=== PATIENT | male | born 1990 | race Caucasian/White ===

== ENCOUNTER 2020-07-02 13:42 | Outpatient (REF) | payer OTHER, SELFPAY ==
[2020-07-02 16:34] LABS: MANUAL DIFF FLAG NO
[2020-07-02 16:38] LABS: Basophils Absolute Auto 0.1 X10*3/uL (0.0-0.2); Basophils Percent Auto 0.8 % (0-2); Eosinophils Absolute Auto 0.3 X10*3/uL (0.0-0.4); Eosinophils Percent Auto 2.7 % (0-4); Hematocrit 45.7 % (42-52); Hemoglobin 14.4 g/dl (14.0-18.0); Imm Gran Abs Auto 0.15 X10*3/uL (0.00-0.03); Imm Gran Pct Auto 1.5 % (0.0-0.4); Lymphocytes Absolute Auto 2.6 X10*3/uL (1.2-4.9); Lymphocytes Percent Auto 25.2 % (20-40); Mean Corpuscular HGB Conc 31.5 g/dl (31.0-36.0); Mean Corpuscular Volume 88.9 fL (80-98); Mean Platelet Volume 9.8 fL (9.4-12.4); Monocytes Absolute Auto 0.6 X10*3/uL (0.1-1.2); Neutrophils Absolute Auto 6.5 X10*3/uL (2.0-8.3); Neutrophils Percent Auto 63.8 % (45-73); Platelet Count 316 X10*3/uL (160-400); Red Blood Count 5.14 X10*6/uL (4.60-5.80); Red Cell Distribution Width 14.5 % (11.0-16.0); White Blood Count 10.2 X10*3/uL (4.8-10.8)
[2020-07-02 17:44] LABS: Alanine Aminotransferase 49 U/L (0-40); Albumin Level 4.1 g/dL (3.5-5.0); Alkaline Phosphatase 81 U/L (39-117); Anion Gap 17 (12-20); Aspartate Amino Transferase 33 U/L (5-37); Bilirubin Total 1.8 mg/dL (0.0-1.0); Blood Urea Nitrogen 12 mg/dL (9-16); Calcium 9.2 mg/dL (8.4-10.2); Carbon Dioxide 26 mmol/L (22-29); Chloride 105 mmol/L (96-108); Cholesterol 228 mg/dL; Estimated Glomerular Filt Rate > 60; Glucose Fasting 96 mg/dL (60-99); HDL Cholesterol 37 mg/dL; LDL Cholesterol Calculated 160 mg/dl; Sodium 144 mmol/L (135-145); Total Protein 7.5 g/dL (6.5-8.0); Triglycerides 159 mg/dL
== END 2020-07-02 13:43 | disposition home or self-care (01) ==
LOC: HO.HMGCLDS 13:42
PROVIDERS: PCP Internal Medicine; Visit Provider Internal Medicine
DX: Z00.00 Encounter for general adult medical examination without abnormal findings (principal); E66.9 Obesity, unspecified
CPT/HCPCS: 36415; 80053; 80061; 85025

== ENCOUNTER 2020-12-22 10:19 | Outpatient (REF) | payer OTHER, SELFPAY ==
--- NOTE | ~2020-12-22 | XR_ITS ---
EXAMINATION: XR CERVICAL SPINE CLINICAL INFORMATION: Cervicalgia COMPARISON: None TECHNIQUE: 3 views of the cervical spine were obtained. FINDINGS: No abnormal prevertebral soft tissue swelling is seen. No acute cervical spine fracture. There is minimal narrowing at the C5-C6 and C6-C7 levels. No destructive bony lesions identified. XR/XR cervical spine 3V IMPRESSION: No significant bony abnormality of the cervical spine.
== END 2020-12-22 10:20 | disposition home or self-care (01) ==
LOC: HO.HMGCX 10:19
PROVIDERS: PCP Internal Medicine; Visit Provider Physician Assistant Medical
DX: M54.2 Cervicalgia (principal)
CPT/HCPCS: 72040

== ENCOUNTER 2021-02-05 10:00 | Outpatient (RCR) | payer OTHER, SELFPAY ==
--- NOTE | 2021-01-16 17:16 | MHC.PT.EP ---
[facility] [place] [facility] [place] [facility] [place] Office [address] Stephie Britt [address] [phone] F: [phone] F: [phone] F: [phone] F: [phone] Physical Therapy Plan of Care Date of Evaluation: Date of Surgery: Diagnosis: Cervicalgia Assessment: Pt is a 30 y/o male referred to PT for eval and treat of cervicalgia resulting in decreased tolerance for turning his head and looking down, driving, reading, concentrating, sleeping, was well as reaching high shelves and dressing pullovers secondary to decreased cervical ROM and strength, decreased B UE ROM, frequent SCHWAB, increased cervical tissue tension, possible radicular Sx L UE, and pain; Pt is deemed an apporpriat candidate to receive skilled PT services to address his physical impairments in order to improve his functional ability. Frequency and Duration: The patient will be seen 2 x / wk x 5 wks. Short Term Goals: Initiate HEP. Pt will improve baseline Sx with activity from 8/10 to < 5 10. Long-Term Goals: I with HEP. Symmetrical full B shoulder flexion ROM. Full symmetrical pain free cervical ROM achieved. Pt will report < 1/4 disturbed night sleep; initial: 3/4 disturbed d/t cervical pain. Pt will report SCHWAB improved by at least 50%. Treatment Plan: Modalities to reduce pain, spasms and effusion. Manual therapy to restore motion and function. Therapeutic exercise to improve strength and flexibility. Neuromuscular re-education for posture and balance. Therapeutic activities to return to functional activities of daily living. Electronically signed by: Michael Bess PT. Please sign and return to therapist. Thank you for your referral.
--- NOTE | 2021-06-19 08:47 | MHC.PT.DC ---
[facility] [place] Office [place] Office [place] Office [address] Stephie Britt [address] [phone] F: [phone] F: [phone] F: [phone] F: [phone] Physical Therapy Discharge Report Diagnosis: Cervicalgia Date of Surgery: Date of Evaluation: 01/16/21 Date of Discharge: 02/05/21 Treatments to Date: 6 Cancellations to Date: No Shows to Date: Discharge Status: Patient Elected to Stop Recommend MD Follow-up Discharge Summary: patient getting MRI today. Limited tolerance for UBE so held. Performed ther-ex for to tolerance. Educated on importance of mobility. No adverse reactions noted. We will hold PT at this time. Electronically signed by: Anastacio Zurita PT Please sign and return to therapist. Thank you for your referral.
== END 2021-06-19 08:47 | disposition home or self-care (01) ==
LOC: HO.PTCHIC 10:00
PROVIDERS: PCP Internal Medicine; Visit Provider Physician Assistant Medical
DX: M54.2 Cervicalgia (principal)
CPT/HCPCS: 97014; 97110; 97112; 97140; 97161

== ENCOUNTER 2021-08-27 10:05 | Outpatient (REF) | payer OTHER, SELFPAY ==
--- NOTE | ~2021-08-27 | XR_ITS ---
EXAMINATION: XR ANKLE, LEFT CLINICAL INFORMATION: Pain COMPARISON: None TECHNIQUE: AP, lateral, and mortise views of the left ankle. FINDINGS: Bone alignment is normal. No fracture or dislocation is seen. The ankle mortise is normal. There is a calcaneal spur at the Achilles tendon insertion. XR/XR ankle LT min 3V IMPRESSION: Normal left ankle. Calcaneal spur.
== END 2021-08-27 10:06 | disposition home or self-care (01) ==
LOC: HO.HMGCX 10:05
PROVIDERS: PCP Internal Medicine; Visit Provider Internal Medicine
DX: M25.572 Pain in left ankle and joints of left foot (principal)
CPT/HCPCS: 73610

== ENCOUNTER 2021-08-28 10:13 | Outpatient (REF) | payer OTHER, SELFPAY ==
[2021-08-28 12:00] LABS: Anion Gap 15 (12-20); Blood Urea Nitrogen 9 mg/dL (9-16); Calcium 9.2 mg/dL (8.4-10.2); Carbon Dioxide 27 mmol/L (22-29); Chloride 103 mmol/L (96-108); Estimated Glomerular Filt Rate > 60; Glucose Random 115 mg/dL (60-115); Sodium 141 mmol/L (135-145); Uric Acid 12.2 mg/dL (3.4-7.0)
== END 2021-08-28 10:14 | disposition home or self-care (01) ==
LOC: HO.HMGCLDS 10:13
PROVIDERS: PCP Internal Medicine; Visit Provider Internal Medicine
DX: M25.572 Pain in left ankle and joints of left foot (principal); R60.0 Localized edema
CPT/HCPCS: 36415; 80048; 84550

== ENCOUNTER 2022-04-10 11:30 | Outpatient (REF) | payer OTHER, SELFPAY ==
[2022-04-10 13:55] LABS: MANUAL DIFF FLAG NO
[2022-04-10 14:29] LABS: Basophils Absolute Auto 0.1 X10*3/uL (0.0-0.2); Basophils Percent Auto 1.2 % (0-2); Eosinophils Absolute Auto 0.3 X10*3/uL (0.0-0.4); Eosinophils Percent Auto 3.8 % (0-4); Hematocrit 42.5 % (42.0-52.0); Hemoglobin 13.6 g/dl (14.0-18.0); Imm Gran Abs Auto 0.03 X10*3/uL (0.00-0.03); Imm Gran Pct Auto 0.5 % (0.0-0.4); Lymphocytes Absolute Auto 2.6 X10*3/uL (1.2-4.9); Lymphocytes Percent Auto 38.8 % (20-40); Mean Corpuscular Hemoglobin 28.6 pg (27.0-33.0); Mean Corpuscular Volume 89.3 fL (80.0-98.0); Mean Platelet Volume 10.2 fL (9.4-12.4); Monocytes Absolute Auto 0.4 X10*3/uL (0.1-1.2); Monocytes Percent Auto 5.9 % (2-11); Neutrophils Absolute Auto 3.3 x10*3/uL (2.0-8.3); Neutrophils Percent Auto 49.8 % (45-73); Platelet Count 366 X10*3/uL (160-400); Red Blood Count 4.76 X10*6/uL (4.60-5.80); Red Cell Distribution Width 14.4 % (11.0-16.0); White Blood Count 6.6 X10*3/uL (4.8-10.8)
[2022-04-10 14:34] LABS: Estimated Average Glucose 103 mg/dL; Hemoglobin A1c % 5.2 %
[2022-04-10 14:55] LABS: Alanine Aminotransferase 31 U/L (0-40); Albumin Level 4.1 g/dL (3.5-5.0); Alkaline Phosphatase 73 U/L (39-117); Anion Gap 14 (12-20); Aspartate Amino Transferase 34 U/L (5-37); Bilirubin Total 1.9 mg/dL (0.0-1.0); Blood Urea Nitrogen 7 mg/dL (9-16); Calcium 9.7 mg/dL (8.4-10.2); Carbon Dioxide 27 mmol/L (22-29); Chloride 105 mmol/L (96-108); Cholesterol 210 mg/dL; Estimated Glomerular Filt Rate > 60; Glucose Fasting 88 mg/dL (60-99); HDL Cholesterol 27 mg/dL; LDL Cholesterol Calculated 149 mg/dl; Potassium 4.4 mmol/L (3.3-5.1); Sodium 142 mmol/L (135-145); Total Protein 7.2 g/dL (6.5-8.0); Triglycerides 172 mg/dL; Uric Acid 7.3 mg/dL (3.4-7.0)
== END 2022-04-10 11:31 | disposition home or self-care (01) ==
LOC: HO.HMGCLDS 11:30
PROVIDERS: PCP Internal Medicine; Visit Provider Internal Medicine
DX: Z00.00 Encounter for general adult medical examination without abnormal findings (principal); D32.1 Benign neoplasm of spinal meninges; E78.5 Hyperlipidemia, unspecified; E79.0 Hyperuricemia without signs of inflammatory arthritis and tophaceous disease; R73.9 Hyperglycemia, unspecified
CPT/HCPCS: 36415; 80053; 80061; 83036; 84550; 85025

== ENCOUNTER 2022-10-06 10:37 | Outpatient (REF) | payer OTHER, SELFPAY ==
[2022-10-06 13:22] LABS: MANUAL DIFF FLAG NO
[2022-10-06 13:49] LABS: Basophils Percent Auto 0.5 % (0-2); Eosinophils Absolute Auto 0.4 X10*3/uL (0.0-0.4); Eosinophils Percent Auto 7.3 % (0-4); Hematocrit 41.6 % (42.0-52.0); Hemoglobin 13.9 g/dl (14.0-18.0); Imm Gran Abs Auto 0.01 X10*3/uL (0.00-0.03); Imm Gran Pct Auto 0.2 % (0.0-0.4); Lymphocytes Absolute Auto 2.6 X10*3/uL (1.2-4.9); Lymphocytes Percent Auto 43.4 % (20-40); Mean Corpuscular HGB Conc 33.4 g/dl (31.0-36.0); Mean Corpuscular Hemoglobin 28.4 pg (27.0-33.0); Mean Corpuscular Volume 85.1 fL (80.0-98.0); Mean Platelet Volume 10.1 fL (9.4-12.4); Monocytes Absolute Auto 0.3 X10*3/uL (0.1-1.2); Monocytes Percent Auto 5.6 % (2-11); Neutrophils Absolute Auto 2.5 x10*3/uL (2.0-8.3); Platelet Count 280 X10*3/uL (160-400); Red Blood Count 4.89 X10*6/uL (4.60-5.80); Red Cell Distribution Width 12.7 % (11.0-16.0); White Blood Count 5.9 X10*3/uL (4.8-10.8)
[2022-10-06 13:59] LABS: Estimated Average Glucose 88 mg/dL; Hemoglobin A1c % 4.7 % (<6.0)
[2022-10-06 14:29] LABS: Alanine Aminotransferase 16 U/L (0-40); Albumin Level 3.9 g/dL (3.5-5.0); Alkaline Phosphatase 62 U/L (39-117); Anion Gap 10 (12-20); Aspartate Amino Transferase 26 U/L (5-37); Bilirubin Total 1.5 mg/dL (0.0-1.0); Blood Urea Nitrogen 8 mg/dL (9-16); Calcium 9.9 mg/dL (8.4-10.2); Carbon Dioxide 28 mmol/L (22-29); Chloride 107 mmol/L (96-108); Cholesterol 202 mg/dL (<200); Estimated Glomerular Filt Rate > 60; Glucose Random 84 mg/dL (60-115); HDL Cholesterol 33 mg/dL (>40); LDL Cholesterol Calculated 140 mg/dL (<100); Potassium 3.8 mmol/L (3.3-5.1); Sodium 141 mmol/L (135-145); Total Protein 7.2 g/dL (6.5-8.0); Triglycerides 146 mg/dL (<150)
== END 2022-10-06 10:38 | disposition home or self-care (01) ==
LOC: HO.HMGCLDS 10:37
PROVIDERS: PCP Internal Medicine; Visit Provider Internal Medicine
DX: Z00.00 Encounter for general adult medical examination without abnormal findings (principal); R73.9 Hyperglycemia, unspecified
CPT/HCPCS: 36415; 80053; 80061; 83036; 85025

== ENCOUNTER 2023-01-05 10:05 | Outpatient (AMB) | payer OTHER, SELFPAY ==
--- NOTE | 2023-01-05 10:08 | MHC.PC.OV ---
Vital Signs 01/05/23 10:09 Height 5 ft 2 in Weight 230 lb BMI 42.1 BP 118/76 Blood Pressure Location Lt brachial Position Sitting Pulse 64 Pulse Source Pulse Oximeter Pulse Oximetry (%) 100 Oxygen Delivery Method Room Air Intake Visit Reasons: 6m follow up Intake Note: Pt is here today for 6 months follow up visit. Allergies No Known Allergies Allergy (Verified 01/05/23 10:24) Tobacco use date assessed: 01/05/23 Dental Screening Dental Screen Date: 01/05/23 Did you have a dental visit in the last 12 months?: Yes Did you have a dental problem in the last 6 months where you did not have access to dental care?: No Was dental information given to patient?: Patient has dentist HPI 6m follow up HPI Details PATIENT PRESENTS FOR THE FOLLOW-UP OF HYPERLIPIDEMIA AND MORBID OBESITY. He has been following low-cholesterol diet exercising regularly walking and losing weight. [facility] Medical History Annual physical exam Asthma Benign neoplasm of spinal meningioma Blurred vision, right eye Cervical radiculopathy Dysplastic nevi Hyperlipidemia Meningioma Neck pain Neoplasm of eye Obesity LU (obstructive sleep apnea) Family History Mother Seizures Father No problems noted. Paternal Grandfather Skin cancer Social History Housing: House Alcohol intake: current Alcohol intake frequency: holidays/special occasions only Patient Tobacco Use Status: Never used Tobacco e-Cigarette/Vaping Use: Never Used Current occupational status: employed Cognitive needs: No Hearing needs: No Vision needs: No Questionnaire PHQ-9 Over the last 2 weeks, how often have you been bothered by any of the following problems? 1. Little interest or pleasure in doing things: not at all 2. Feeling down, depressed, or hopeless: not at all 3. Trouble falling or staying asleep, or sleeping too much: not at all 4. Feeling tired or having little energy: not at all 5. Poor appetite or overeating: not at all 6. Feeling bad about yourself - or that you are a failure or have let yourself or your family down: not at all 7. Trouble concentrating on things, such as reading the newspaper or watching television: not at all 8. Moving or speaking so slowly that other people could have noticed. Or the opposite - being so fidgety or restless that you have been moving around a lot more than usual: not at all 9. Thoughts that you would be better off or of hurting yourself in some way: not at all Total score: 0 Depression Screening Interpretation: Negative Depression Screening Done: Yes Source: Developed by Drs. José Miguel Parekh, Bill Mckee and colleagues, with an educational paul from [employer]. Thrive Questionnaire Date Thrive assessed: 04/14/22 ALMITA-7 AMB Questionnaire ALMITA-7 Date ALMITA - 7 assessed: 01/05/23 Feeling nervous, anxious, or on edge: 0 = Not at all Not being able to stop or control worryin = Not at all Worrying too much about different things: 0 = Not at all Trouble relaxin = Not at all Being so restless that it is hard to sit still: 0 = Not at all Becoming easily annoyed or irritable: 0 = Not at all Feeling afraid as if something awful might happen: 0 = Not at all Total ALMITA-7 score (0-4 normal; 5-9 mild; 10-14 moderate; 15-21 severe): 0 Source: Developed by Drs. José Miguel Parekh, Bill Mckee and colleagues, with an educational paul from [employer]. Review of Systems Const All systems reviewed & are unremarkable except as noted in HPI and below ENT Reports no additional complaints Card Reports no additional complaints Resp Reports no additional complaints GI Reports no additional complaints Physical exam (Primary Care) Vital Signs: Last Vital Signs Pulse 64 01/05/23 10:09 BP 118/76 01/05/23 10:09 Pulse Ox 100 01/05/23 10:09 Oxygen Delivery Method Room Air 01/05/23 10:09 BMI result Body Mass Index 42.1 Tobacco/Smoking Status: Tobacco use Status Tobacco use date assessed 01/05/23 01/05/23 10:26 Patient Tobacco Use Status Never used Tobacco 01/05/23 10:26 e-Cigarette/Vaping Use Never Used 01/05/23 10:09 PHQ-9: PHQ-9 Score PHQ-9: Total score 0 01/05/23 10:26 Depression Screening Interpretation: Negative Thrive Assessment: Date of Thrive Assessment Date Thrive assessed 04/14/22 01/05/23 10:09 Assessment and Plan Assessment & Plan (1) Anemia: Code(s): D64.9 - Anemia, unspecified Plan: check CBC, Iron studies and vit B 12 (2) Hyperglycemia: Code(s): R73.9 - Hyperglycemia, unspecified Plan: cont ADA diet (3) Obesity: Code(s): E66.9 - Obesity, unspecified Plan: cont weight loss (4) Hyperlipidemia: Code(s): E78.5 - Hyperlipidemia, unspecified Plan: low cholesterol diet, PE in June with labs before Orders: Orders IRON PROFILE Today D64.9 - Anemia, unspecified, R73.9 - Hyperglycemia, unspecified Vitamin B12 and Folate Today D64.9 - Anemia, unspecified Complete Blood Count Auto Diff 6 Months D64.9 - Anemia, unspecified, E66.9 - Obesity, unspecified, E78.5 - Hyperlipidemia, unspecified, E79.0 - Hyperuricemia without signs of inflammatory arthritis and tophaceous disease, Z00.00 - Encounter for general adult medical examination without abnormal findings Uric Acid 6 Months D64.9 - Anemia, unspecified, E66.9 - Obesity, unspecified, E78.5 - Hyperlipidemia, unspecified, E79.0 - Hyperuricemia without signs of inflammatory arthritis and tophaceous disease, Z00.00 - Encounter for general adult medical examination without abnormal findings Complete Blood Count Auto Diff Today D64.9 - Anemia, unspecified, R73.9 - Hyperglycemia, unspecified Basic Metabolic Panel Today D64.9 - Anemia, unspecified, R73.9 - Hyperglycemia, unspecified Comprehensive [place]. Panel Fast 6 Months D64.9 - Anemia, unspecified, E66.9 - Obesity, unspecified, E78.5 - Hyperlipidemia, unspecified, E79.0 - Hyperuricemia without signs of inflammatory arthritis and tophaceous disease, Z00.00 - Encounter for general adult medical examination without abnormal findings Lipid Panel 6 Months D64.9 - Anemia, unspecified, E66.9 - Obesity, unspecified, E78.5 - Hyperlipidemia, unspecified, E79.0 - Hyperuricemia without signs of inflammatory arthritis and tophaceous disease, Z00.00 - Encounter for general adult medical examination without abnormal findings IRON PROFILE 6 Months D64.9 - Anemia, unspecified, E66.9 - Obesity, unspecified, E78.5 - Hyperlipidemia, unspecified, E79.0 - Hyperuricemia without signs of inflammatory arthritis and tophaceous disease, Z00.00 - Encounter for general adult medical examination without abnormal findings Coding Level of Care Code Est Pt Level 4 (67335) Diagnoses Anemia D64.9 Hyperglycemia R73.9 Obesity E66.9 Hyperlipidemia E78.5
[2023-01-05 10:09] VITALS: BP 118/76; PULSE 64; O2SAT 100; BMI 42.1
== END 2023-01-05 10:58 | disposition home or self-care (01) ==
PROVIDERS: PCP Internal Medicine; Visit Provider Internal Medicine
DX: D64.9 Anemia, unspecified (principal); E66.9 Obesity, unspecified; Z68.41 Body mass index [BMI] 40.0-44.9, adult; R73.9 Hyperglycemia, unspecified; E78.5 Hyperlipidemia, unspecified
CPT/HCPCS: 99214

== ENCOUNTER 2023-07-07 10:21 | Outpatient (AMB) | payer OTHER, SELFPAY ==
[2023-07-07 10:23] VITALS: BP 108/70; PULSE 72; O2SAT 97; BMI 48.3
--- NOTE | 2023-07-07 10:23 | A.OFFPC_ITS ---
Vital Signs 07/07/23 10:23 Height 5 ft 2 in Weight 264 lb BMI 48.3 BP 108/70 Blood Pressure Location Lt brachial Position Sitting Pulse 72 Pulse Source Pulse Oximeter Pulse Oximetry (%) 97 Oxygen Delivery Method Room Air Intake Visit Reasons: PE Intake Note: Pt is here today for PE. Allergies No Known Allergies Allergy (Verified 07/07/23 10:23) Medication List - Last Reconciled 07/07/23 by Kia Mota MD betamethasone valerate 0.1% topical compr.stocking,knee,long,x-lrg As directed melatonin 6 mg PO BEDTIME PRN multivitamin (Daily Multi-Vitamin tablet) 1 tab PO DAILY Tobacco use date assessed: 07/07/23 Dental Screening Dental Screen Date: 07/07/23 Did you have a dental visit in the last 12 months?: Yes Did you have a dental problem in the last 6 months where you did not have access to dental care?: No Was dental information given to patient?: Patient has dentist HPI PE HPI Details Pt presents for PE. Patient has been trying to lose weight but has been eating lot of unhealthy snacks brought by his father and not exercising regularly. [facility] Medical History (Updated 07/07/23 @ 11:21 by Kia Mota MD) Hyperlipidemia Meningioma Benign neoplasm of spinal meningioma Dysplastic nevi LU (obstructive sleep apnea) Cervical radiculopathy Blurred vision, right eye Neck pain Obesity Annual physical exam Asthma Neoplasm of eye Family History Mother Seizures Father No problems noted. Paternal Grandfather Skin cancer Social History Housing: House Alcohol intake: current Alcohol intake frequency: holidays/special occasions only Patient Tobacco Use Status: Never used Tobacco e-Cigarette/Vaping Use: Never Used service: No Current occupational status: employed Cognitive needs: No Hearing needs: No Vision needs: No Questionnaire PHQ-9 Over the last 2 weeks, how often have you been bothered by any of the following problems? 1. Little interest or pleasure in doing things: several days 2. Feeling down, depressed, or hopeless: several days 3. Trouble falling or staying asleep, or sleeping too much: more than half the days 4. Feeling tired or having little energy: not at all 5. Poor appetite or overeating: nearly every day 6. Feeling bad about yourself - or that you are a failure or have let yourself or your family down: more than half the days 7. Trouble concentrating on things, such as reading the newspaper or watching television: several days 8. Moving or speaking so slowly that other people could have noticed. Or the opposite - being so fidgety or restless that you have been moving around a lot more than usual: not at all 9. Thoughts that you would be better off or of hurting yourself in some way: several days Total score: 11 Depression Screening Interpretation: Positive Depression Screening Done: Yes Source: Developed by Drs. José Miguel Parekh, Betty Horan, Bill Parks and colleagues, with an educational paul from [employer]. Thrive Questionnaire Date Thrive assessed: 07/07/23 I am a: Patient What is your living situation today?: I have a steady place to live Within the past 12 months, did the food you bought not last and you didn't have the money to get more?: Never true Within the past 12 months, did you worry whether your food would run out before you got money to buy more?: Never true Do you have trouble paying for medicines?: No Do you have trouble getting transportation to medical appointments?: No Do you have trouble paying your heating and electricity bill?: No Do you have trouble taking care of your child, family member or friend?: No Do you have trouble with day-to-day activities such as bathing, preparing meals, shopping, managing finances, etc.?: No Are you currently unemployed and looking for a job?: No Are you interested in more education?: No Please select the resources that you would like help with: None THRIVE Score: 0 AUDIT C Alcohol Use Questionnaire (AUDIT-C) 1. How often do you have a drink containing alcohol?: Monthly or less 2. How many drinks containing alcohol do you have on a typical day when you are drinking?: 1 or 2 3. How often do you have six or more drinks on one occasion?: Never Total Score: 1 ALMITA-7 AMB Questionnaire ALMITA-7 Date ALMITA - 7 assessed: 07/07/23 Feeling nervous, anxious, or on edge: 1 = Several days Not being able to stop or control worryin = Several days Worrying too much about different things: 2 = More than half the days Trouble relaxin = More than half the days Being so restless that it is hard to sit still: 1 = Several days Becoming easily annoyed or irritable: 1 = Several days Feeling afraid as if something awful might happen: 1 = Several days Total ALMITA-7 score (0-4 normal; 5-9 mild; 10-14 moderate; 15-21 severe): 9 Source: Developed by Drs. José Miguel Parekh, Betty Horan, Bill Parks and colleagues, with an educational paul from [employer]. Review of Systems Const All systems reviewed & are unremarkable except as noted in HPI and below Reports no additional complaints Eyes Reports no additional complaints ENT Reports no additional complaints Card Reports no additional complaints Resp Reports no additional complaints GI Reports no additional complaints Reports no additional complaints Physical exam (Primary Care) Vital Signs: Last Vital Signs Pulse 72 07/07/23 10:23 BP 108/70 07/07/23 10:23 Pulse Ox 97 07/07/23 10:23 Oxygen Delivery Method Room Air 07/07/23 10:23 BMI result Body Mass Index 48.3 Tobacco/Smoking Status: Tobacco use Status Tobacco use date assessed 07/07/23 07/07/23 10:31 Patient Tobacco Use Status Never used Tobacco 07/07/23 10:31 e-Cigarette/Vaping Use Never Used 07/07/23 10:31 Depression Screening Interpretation: Positive Thrive Assessment: Date of Thrive Assessment Date Thrive assessed 04/14/22 07/07/23 10:31 Const General: no acute distress HENMT Head: Yes normal to inspection Ears: hearing grossly normal bilaterally General nose exam: Normal external nose present Face and sinus: Yes normal facial exam Mouth: Normal oral and palatal mucosa present Eyes General: appearance normal, both eyes and all related structures Neck Neck: Yes no lymphadenopathy and Yes supple Resp Effort & Inspection: normal respiratory effort Auscultation: clear to auscultation bilaterally Cardio Rhythm: regular rhythm Heart sounds: S1 normal heart sound present and S2 normal heart sound present GI Inspection: Yes normal to inspection Palpation (GI): Soft to palpation Percussion: Yes normal to percussion Auscultation: normal bowel sounds Assessment and Plan Assessment & Plan (1) Annual physical exam: Code(s): Z00.00 - Encounter for general adult medical examination without abnormal findings Plan: Well-balanced diet regular physical activity discussed with the patient he will return for fasting blood work (2) Morbid obesity due to excess calories: Code(s): E66.01 - Morbid (severe) obesity due to excess calories Plan: Increase in physical activity decrease in caloric intake and weight loss discussed with the patient. He was advised to see a counselor for chronic anxiety but patient declined (3) Anemia: Code(s): D64.9 - Anemia, unspecified Plan: check CBC (4) Meningioma: Comment: s/p [employer] shunt placement at [facility] 02/05, neurosurgeon at [facility] PARTIAL RESECTION 07/07, follows up annually for brain MRI Code(s): D32.9 - Benign neoplasm of meninges, unspecified Plan: Follow-up with neurosurgeon at [facility] Orders: Orders Hemoglobin A1c Today D64.9 - Anemia, unspecified, E66.01 - Morbid (severe) obesity due to excess calories, Z00.00 - Encounter for general adult medical examination without abnormal findings Comprehensive [place]. Panel Fast Today D64.9 - Anemia, unspecified, E66.01 - Morbid (severe) obesity due to excess calories, Z00.00 - Encounter for general adult medical examination without abnormal findings Complete Blood Count Auto Diff Today D64.9 - Anemia, unspecified, E66.01 - Morbid (severe) obesity due to excess calories, Z00.00 - Encounter for general adult medical examination without abnormal findings Lipid Panel Today D64.9 - Anemia, unspecified, E66.01 - Morbid (severe) obesity due to excess calories, Z00.00 - Encounter for general adult medical examination without abnormal findings Coding Level of Care Code Est Pt Prev Care 18-39y([id number]) Diagnoses Annual physical exam Z00.00 Morbid obesity due to excess calories E66.01 Anemia D64.9 Meningioma D32.9
== END 2023-07-07 11:13 | disposition home or self-care (01) ==
PROVIDERS: Visit Provider Internal Medicine
DX: Z00.00 Encounter for general adult medical examination without abnormal findings (principal); E66.01 Morbid (severe) obesity due to excess calories; D32.9 Benign neoplasm of meninges, unspecified; Z68.42 Body mass index [BMI] 45.0-49.9, adult; D64.9 Anemia, unspecified
CPT/HCPCS: 99395

== ENCOUNTER 2023-07-16 10:04 | Outpatient (REF) | payer OTHER, SELFPAY ==
[2023-07-16 13:34] LABS: MANUAL DIFF FLAG NO
[2023-07-16 13:41] LABS: Basophils Absolute Auto 0.1 X10*3/uL (0.0-0.2); Basophils Percent Auto 0.9 % (0-2); Eosinophils Absolute Auto 0.3 X10*3/uL (0.0-0.4); Eosinophils Percent Auto 3.8 % (0-4); Hematocrit 40.7 % (42.0-52.0); Hemoglobin 13.7 g/dl (14.0-18.0); Imm Gran Abs Auto 0.05 X10*3/uL (0.00-0.03); Imm Gran Pct Auto 0.7 % (0.0-0.4); Lymphocytes Percent Auto 43.7 % (20-40); Mean Corpuscular HGB Conc 33.7 g/dl (31.0-36.0); Mean Corpuscular Hemoglobin 30.9 pg (27.0-33.0); Mean Corpuscular Volume 91.7 fL (80.0-98.0); Mean Platelet Volume 10.2 fL (9.4-12.4); Monocytes Absolute Auto 0.4 X10*3/uL (0.1-1.2); Monocytes Percent Auto 5.3 % (2-11); Neutrophils Absolute Auto 3.1 x10*3/uL (2.0-8.3); Neutrophils Percent Auto 45.6 % (45-73); Platelet Count 275 X10*3/uL (160-400); Red Blood Count 4.44 X10*6/uL (4.60-5.80); Red Cell Distribution Width 12.2 % (11.0-16.0); White Blood Count 6.8 X10*3/uL (4.8-10.8)
[2023-07-16 14:15] LABS: Alanine Aminotransferase 20 U/L (0-40); Alkaline Phosphatase 62 U/L (39-117); Anion Gap 11 (12-20); Aspartate Amino Transferase 34 U/L (5-37); Bilirubin Total 1.3 mg/dL (0.0-1.0); Blood Urea Nitrogen 11 mg/dL (9-16); Calcium 9.9 mg/dL (8.4-10.2); Carbon Dioxide 29 mmol/L (22-29); Chloride 105 mmol/L (96-108); Cholesterol 220 mg/dL (<200); Estimated Glomerular Filt Rate > 60; Glucose Fasting 82 mg/dL (60-99); HDL Cholesterol 33 mg/dL (>40); LDL Cholesterol Calculated 136 mg/dL (<100); Potassium 4.1 mmol/L (3.3-5.1); Sodium 141 mmol/L (135-145); Total Protein 7.6 g/dL (6.5-8.0); Triglycerides 257 mg/dL (<150)
[2023-07-16 14:17] LABS: Estimated Average Glucose 97 mg/dL
== END 2023-07-16 10:05 | disposition home or self-care (01) ==
LOC: HO.HMGCLDS 10:04
PROVIDERS: PCP Internal Medicine; Visit Provider Internal Medicine
DX: Z00.00 Encounter for general adult medical examination without abnormal findings (principal); D64.9 Anemia, unspecified; E66.01 Morbid (severe) obesity due to excess calories
CPT/HCPCS: 36415; 80053; 80061; 83036; 85025

== ENCOUNTER 2024-03-21 08:00 | Outpatient (AMB) | payer OTHER, SELFPAY ==
--- OUTSIDE RECORDS SUMMARY | 2024-03-21 08:02 | XMS_ITS | Data Portability ---
Author Organization VASILIY Azar [facility] [address] Address [address] [place] [address] Care Team Providers Care Dry Sand Molder Name Role Phone [facility] Primary Care Provider [phone] Assessment No assessment recorded. Plan of Treatment Reminders Order Date Submit Date Provider Last Modified By Organization Details Last Modified Time Details Appointments None recorded. Lab None recorded. Referral None recorded. Procedures None recorded. Surgeries None recorded. Imaging None recorded. Medication Orders Polytrim 10,000 unit-1 mg/mL eye drops 2022 023 [id number], [address], [place], [phone], 19:48:55 Patient TargetsNo targets recorded. Patient Instructions Encounter Date Encounter Id Patient Instructions Last Modified By Organization Details Last Modified Time 08/28/2022 [id number] Based on your presentation and exam, you are going diagnosed with Conjunctivitis. I am going to cover you for a bacterial infection in the eye with antibiotic eye drops. Sometimes these symptoms can be caused by a virus or allergies. Viral infections with spontaneously resolve after 7-10 days and do not require treatment. If it is an allergy cause sometime oral allergy medications will help with these symptoms or a allergy eye drop that can be purchased OTC. The following are my recommendations to help with your symptoms and this diagnosis: 1. Do not rub your eyes this can cause it to spread or damage the cornea of your eye. 2. Wash surfaces such as cell phones, remotes, door knob frequently, because this is how it is transmitted to others. 3. Do not wear contacts for at least 1 week if you have contacts. 4. No makeup 5. You can take Ibuprofen or Tylenol for discomfort if you are not allergic to them. 6. If you get lubricating eye drops and put them in the refrigerator - this can help with itching and discomfort. You should be seen again if you develop any of the following symptoms 1. Eye pain or pressure behind the eye. 2. Redness or significant swelling of the eyelid or around the eye 3. Headache 4. Fever > 100.5 5. No improvement in current symptoms in the next 1 week. Thank you for using [facility] today, please feel free to contact us with any questions or concerns. [email or web address] Not available 08/28/2022 19:49:01 Reason for Referral None Reported. Problems Name Problem SNOMED Code Status Onset Date Resolution Date Notes Provider Name and Address Organization Details Recorded Time Malignant neoplasm of eye 157809373 Completed 202208/28/20221992 ULYSSES brantley PA - [facility] 3 19:20:09 Notes:chiari malformation fi xed in 2021 hx of brain tumor 2021 Problem Notes None recorded. Procedures Surgical History Date Name Laterality Status Provider Name and Address Organization Details Recorded Time 2 procedure on brain ventricular shunt completed ULYSSES JUSTIN PA - [facility] 08/28/2022 19:23:13 2 excision of tumor of brain meninges completed ULYSSES JUSTIN PA - [facility] 08/28/2022 19:23:43 3 procedure on eye completed ULYSSES JUSTIN PA - [facility] 08/28/2022 19:24:18 Imaging Results None recorded. Procedure Notes None recorded. Medical Equipment None Reported. Allergies No known drug allergies Medications Name Sig Start Date Stop Date Status Note LastModified by Organization Details LastModified Time Polytrim 10,000 unit-1 mg/mL eye drops INSTILL 1 DROP INTO AFFECTED EYE(S) BY OPHTHALMIC ROUTE EVERY 4 HOURS 2022 active Not Available Not Available Not Avai lable Fish Oil active Not Available Not Avai lable Not Available Zyrtec active Not Available Not Availa ble Not Available multivitamin active Not Available Not Available Not Available Vitals Date Recorded Body height Body mass index (BMI) Body weight Pain severity - 0-10 verbal numeric rating [Score] - Reported Oxygen saturation Oxygen saturation in Arterial blood by Pulse oximetry Heart rate Respiratory rate Body temperature Systolic blood pressure Diastolic blood pressure Provider Name and Address Organization Details Last Updated DateTime 157.48 cm 43 kg/m2 566447. 21 g 2 99 % 99 % 77 /min 18 /min 98.1 [degF] 102 mm[Hg] 67 mm[Hg] ULYSSES JUSTIN PA - [facility] 19:26:41 Social History Question Answer Notes LastModified by Organizat ion Details LastModified Time Tobacco Smoking Status Never Smoker ULYSSES JUSTIN null, [place] - [facility] 08/28/2022 19:21:54 Are You Currently Employed? Yes Information not available 08/28/2022 Do You Use Any Illicit Or Recreational Drugs? No Information not available 08/28/2022 Have You Recently Traveled Abroad? No Information not available 08/28/2022 Do You Or Have You Ever Used Any Other Forms Of Tobacco Or Nicotine? No Information not available 08/28/2022 Sex: Unknown Functional Status None recorded. Mental Status None recorded. Family History Relationship Description Onset Age of this Age Resolved Age Notes LastModified by Organization Details LastModified Time Father No current problems or disability Not available 08/28 19:21:33 Mother No current problems or disability Not available 08/28 19:21:33 Medical History No medical history recorded. Immunizations Vaccine Type Date Status Note Provider Nam e and Address Organization Details Recorded Time Influenza, MDCK, quadrivalent, PF 01/19/2021 completed ULYSSES NHAN null, PA - [facility] 08/28/2022 19:29:28 COVID-19, mRNA, LNP-S, PF, 30 mcg/0.3 mL dose 06/01/2020 completed ULYSSES NHAN null, PA - [facility] 08/28/2022 19:29:28 COVID-19, mRNA, LNP-S, PF, 30 mcg/0.3 mL dose 06/22/2020 completed ULYSSES NHAN null, [place] - [facility] 08/28/2022 19:29:28 COVID-19, mRNA, LNP-S, PF, 30 mcg/0.3 mL dose, marilin-sucrose 03/08/2021 completed ULYSSES NHAN null, [place] - [facility] 08/28/2022 19:29:28 COVID-19, mRNA, LNP-S, bivalent, PF, 30 mcg/0.3 mL dose 01/12/2022 completed ULYSSES NHAN null, PA - [facility] 08/28/2022 19:29:28 Influenza, split virus, quadrivalent, PF 01/12/2022 completed ULYSSES NHAN null, PA - [facility] 08/28/2022 19:29:28 Past Encounters Encounter ID Performer Location Encounter Start Date Encounter Closed Date Diagnosis/Indication Diagnosis SNOMED-CT Code Diagnosis ICD10 Code Diagnosis Note [id number] [address] [address] [place] [address] 01/19/2021 14:05:43 01/19/2021 14:14:58 [id number] [address] [address] [place] [address] 02/03/2020 13:37:58 02/03/2020 17:18:55 [id number] [address] [place] [address] 01/19/2021 12:51:52 01/19/2021 14:10:19 [id number] VASILIY GRACE [address] [place] [address] 08/28/2022 19:12:10 08/28/2022 19:59:08 Acute conjunctivitis of right eye 6451377566 77231 H10.31 Health Concerns Section Related Observation LastModified by Organization Detai ls LastModified Time None Recorded Concern Status LastModified by Organization Details LastModified Time None Recorded Advance Directives Directive None Recorded Payers Encounter Date Sequence Insurance Name Policy Number Policy Carlson Covered Member ID Carlson Member ID Guarantor Name 01/19/2021 1 [facility] - DIRECT CONNECTORCARE TYPE I (HMO) [id number] Teddy Peralta [id number] Teddy Peralta 01/19/2021 1 [facility] - DIRECT CONNECTORCARE TYPE I (HMO) [id number] Teddy Ward Yarielsusieestephaniasuzan [id number] Teddy Fabian 08/28/2022 1 [facility] - DIRECT [facility] [id number] Teddy Peralta [id number] Teddy Fabian Notes Date Note Type Note Provider Name and Address Organization Details Recorded Time 08/28/2022 text/html PhysicalReported bypatient.Notes:31 y.o male pt presents with right eye erythema with mild discharge x 2 days. Pt denies pain, fb sensation, light sensitivity, or h/o wearing contacts. Used Zyrtec with some benefit. VASILIY GRACE [address] [place], [address], [place] - [facility] 09/03/2022 13:54:07
--- OUTSIDE RECORDS SUMMARY | 2024-03-21 08:02 | XMS_ITS | Continuity of Care Document ---
Author Organization [place] - [facility], [facility] Address [address] [place] [address] Care Team Providers Care Glycerin Supervisor Name Role Phone MARTY ARCHIBALD Primary Care Provider Assessment Encounter Date Assessment Date Assessment LastModified by Organization Details LastModified Time 02/29/2024 02/29/2024 The right ear is looking much better today, with no signs of residual middle ear effusion. No signs of retraction or significant residual eustachian tube dysfunction. Audiometric testing was carried out today to reevaluate the right ear. The previously noted conductive component of the hearing loss has resolved leaving him with a mildly asymmetric underlying sensorineural hearing loss. The asymmetry is likely due to his history of intracranial surgery and subsequent radiation in this area. There is enough hearing loss to have a negative effect on day-to-day hearing and we discussed his candidacy for amplification in the right ear. He feels like the hearing loss is not bothering him enough to want to consider amplification, so he would like to leave alone for now. Patient may use Valsalva maneuver as needed for recurrence of blockage sensation. He may follow-up as needed. [email or web address] Not available 02/29/2024 12:38:08 Plan of Treatment Reminders Order Date Submit Date Provider Last Modified By Organization Details Last Modified Time Details Appointments None record ed. Lab None record ed. Referral None record ed. Procedures None record ed. Surgeries None record ed. Imaging None record ed. Medication Orders None record ed. Patient TargetsNo targets recorded. Patient InstructionsNo instructions recorded. Reason for Referral None Reported. Results Created Date Observation Date Name Description Value Unit Range Abnormal Flag Note LastModifiedBy Organization Detail LastModifiedTime 03/01/19 25 audio gram No observ ation record ed. BARCODE Not Available 2024 09:36:50 Result Notes None recorded. Problems Name Problem SNOMED Code Status Onset Date Resolution Date Notes Provider Name and Address Organization Details Recorded Time Tinnitus of right ear 4204208814793 Active 2023 GIGI HICKMAN [address] [facility] [facility] 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 7543599861896 5 Active 2023 GIGI HICKMAN [address] [facility],[address], [place], [address], [place] - [facility] 4 14:52:35 Dysfunction of eustachian tube 71559373 Active 2023 ZANA VIGIL MD [address] [facility], [place], [address], [place] - [facility] 4 16:12:30 Sensorineur al hearing loss 14039732 Active 2024 ZANA VIGIL MD [address] [facility], [place], [address], [place] - [facility] 5 12:35:52 Problem Notes None recorded. Procedures Surgical History Date Name Laterality Status Provider Name and Address Organization Details Recorded Time 025 Air & Speech Audio with Tymps (51404, 72554 & 02417) completed GIGI HICKMAN 100 [facility],[address], [address], [facility] - [facility] 02/29/2024 11:59:44 024 Comp Audio with Tymps (52040 & 04464) completed GIGI HICKMAN 100 [facility],[address], [address], [facility] - [facility] 12/24/2023 14:42:33 024 Fiberoptic Nasopharyngoscopy completed ZANA VIGIL MD [address], [address], [facility] 12/24/2023 16:01:54 Imaging Results None recorded. Procedure Notes None recorded. Medical Equipment None Reported. Allergies Allergen ID Allergen Name Allergen Category Reaction Reaction Severity Criticality Documentation Date Start Date Code Code System Note Provider Name and Address Organization Details Recorded Time 128213 strawberr y allergeni c extract food Not available Not available Not available 12/24/2023 92641 4 RxNorm Olga brantley [place] - [facility] 15:39:25 No known drug allergies Medications Name Sig Start Date Stop Date Status Note LastModified by Organization Details LastModified Time ammonium lactate 12 % lotion APPLY TOPICALLY TO THE AFFECTED AREA OF THE LEGS TWICE DAILY 12/23 completed Not Available Not Available Not Available econazole nitrate 1 % topical cream APPLY TWICE DAILY TO FEET UNTIL CLEARED THEN ONCE WEEKLY FOR MAINTENAN CE 12/23 completed Not Available Not Available Not Available betamethaso ne dipropionat e 0.05 % topical cream APPLY TO LEGS TWICE DAILY FOR 2 WEEKS THEN BREAK FOR 1 WEEK THEN NEEDED 12/23 completed Not Available Not Available Not Available mupirocin 2 % topical ointment APPLY TOPICALLY TO THE BIOPSY SITE TWICE DAILY X14 DAYS 12/23 completed Not Available Not Available Not Available Vitals None Recorded Social History None recorded. Functional Status None recorded. Mental Status None recorded. Family History Nothing Reported. Medical History Condition Response Allergies/Hayfever Y Heart Problems N Anxiety Y Tonsil Infections N Emphysema N Migraines Y Thyroid Problems N Glaucoma N Depression Y COPD N Developmental Delay N Nasal or Sinus Problems N Anemia N Immune System Disorder N Anesthesia Complications N Heart Attack ([place]) N Other Skin Condition N Diabetes N Rhinitis N Bleeding Disorder N Food Allergy Y Arthritis N Hearing Loss Y Hyperlipidemia Y Cancer Y Stroke N Dementia N Nasal polyps N Asthma N Sleep Disorder Y GERD/Reflux N High Cholesterol Y Liver Disease N Headaches Y Fibromyalgia N Hypertension N Speech Delay N Kidney Disease N Past Encounters Encounter ID Performer Location Encounter Start Date Encounter Closed Date Diagnosis/Indication Diagnosis SNOMED-CT Code Diagnosis ICD10 Code Diagnosis Note [id number] ZANA VIGIL MD [facility] [address] [address] 02/29/2024 11:25:11 02/29/2024 12:34:41 History of radiation therapy 962067897 Z92.3 Dysfunctio n of eustachian tube 29609682 H68.001 Right Ear:Mild to moderate MHL.Type A tympanogra m- positive pressure noted. Sensorineu ral hearing loss 95675824 H90.3 Health Concerns Section Related Observation LastModified by Organization Detai ls LastModified Time None Recorded Concern Status LastModified by Organization Details LastModified Time None Recorded Payers Encounter Date Sequence Insurance Name Policy Number Policy Carlson Covered Member ID Carlson Member ID Guarantor Name 02/29/2024 1 [facility] [employer] [facility] - DIRECT CONNECTORCARE TYPE I (HMO) [id number] Teddy Peralta [id number] Teddy Peralta Notes Date Note Type Note Provider Name and Address Organization Details Recorded Time 02/29/2024 text/html 33-year-old male who underwent 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 He underwent partial resection of the tumor via suboccipital craniotomy by Dr. Mares in [place] in 2021. The there is a significant amount of residual tumor was irradiated by [facility] radiation oncology is being monitored by radiation oncology service. Patient last seen back in December at which point patient noted to have a chronic mucoid middle ear effusion on the right. I recommended Valsalva maneuver and/or use of Eustachi device to consistently insufflate the middle ear space. He comes back today for reevaluation. Patient reports he has been using Valsalva maneuver on a consistent basis and has noticed a significant improvement in the hearing in the right ear, though it does not sound quite as good as the hearing in the left ear. He still notes constant tinnitus in the right ear ZANA VIGIL MD [address] [place] [address], [place], [address], [facility] - [facility] 02/29/2024 12:38:48
[2024-03-21 08:03] VITALS: BP 110/68; PULSE 77; TEMP 36.8; O2SAT 98; BMI 48.3
--- NOTE | 2024-03-21 08:03 | AM.OFFWIN_ITS ---
Intake Vital Signs 03/21/24 08:03 Height 5 ft 2 in Weight 264 lb BMI 48.3 BP 110/68 Blood Pressure Location Lt brachial Position Sitting Pulse 77 Pulse Source Pulse Oximeter Temp 98.3 F Temp Source Oral Pulse Oximetry (%) 98 Intake Visit Reasons: EP LT leg pain Intake Note: pt is here for left leg pain Patient Tobacco Use Status: Never used Tobacco Allergies No Known Allergies Allergy (Verified 03/21/24 08:04) Do you need a note to return to daycare/school/sports/work: No HPI HPI Comments History of Present Illness Details History of Present Illness - The patient is a 33-year-old male pres enting with left leg pain that originated suddenly 3 days ago. he denies trauma or new excercise habits. - Pain is sharp, affecting the area from the heel to the calf, triggered by weight-bearing and flexing his foot. - Employment in retail involving long st anding periods may have contributed to the worsening of symptoms. - He reports minimal relief from naproxe n and no history of recent surgeries, immobility, or travel incidents, or history of DVT - There is no noticeable swelling or dis coloration in the affected area. Physical Exam General: Cooperative, healthy appearing, comfortable, no acute distress and well developed Orientation: Patient oriented x3 Limitations: No limitations Head: Normal to inspection Ears: Hearing grossly normal bilaterally Nose: Normal external nose present Face and sinus: Normal facial exam Eyes: Appearance normal, both eyes and all related structures Neck: Normal visual inspection and Yes full ROM Respiratory: Normal respiratory effort and able to speak in complete sentences. Clear to auscultation bilaterally Cardiovascular: Regular rate and rhythm. Normal S1 and S2 Skin: No rashes or lesions noted, no skin discoloration Neuro: Patient oriented x3, limping gait Extremities: as below [facility] Medical History (Updated 03/21/24 @ 08:28 by Guerita Cruz PA-C) Hyperlipidemia Meningioma Benign neoplasm of spinal meningioma Dysplastic nevi LU (obstructive sleep apnea) Cervical radiculopathy Blurred vision, right eye Neck pain Obesity Annual physical exam Asthma Neoplasm of eye Family History Mother Seizures Father No problems noted. Paternal Grandfather Skin cancer Social History Housing: House Alcohol intake: current Alcohol intake frequency: holidays/special occasions only Patient Tobacco Use Status: Never used Tobacco e-Cigarette/Vaping Use: Never Used service: No Current occupational status: employed Cognitive needs: No Hearing needs: No Vision needs: No Review of Systems Const All systems reviewed & are unremarkable except as noted in HPI and below Physical Exam Vital Signs: Last Vital Signs Temp 98.3 F 03/21/24 08:03 Pulse 77 03/21/24 08:03 BP 110/68 03/21/24 08:03 Pulse Ox 98 03/21/24 08:03 BMI result Body Mass Index 48.3 Extrem Left lower extremity: normal to inspection, full ROM, lower leg (negative Homans) Details: normal to inspection; no erythema, no tenderness and no localized swelling and ankle Details: normal to inspection, no edema, normal ROM (with some pain on flexion) and achilles tendon exam abnormal (TTP, intact); no warmth, no abrasions, no lacerations, no ecchymosis and no penetrating wound Assessment & Plan Assessment & Plan (1) Achilles tendinitis, left leg: Code(s): M76.62 - Achilles tendinitis, left leg Plan: Achilles tendinitis, management included advising rest, applying ice, and continuing with naproxen ATC x 4 days then PRN for pain and inflammation. An Cam wrap was suggested for support, and the option of using a boot if symptoms persist was discussed. PT declined the boot and said he has a cane he can use. I applied an CAM wrap. Detailed instructions on icing the area were provided to assist in reducing inflammation. The current clinical presentation doesn't warrant further diagnostics or referrals. If no gradual improvement in symptoms, he should return to the [place] or follow up with his PCP. Wrote work note so he can rest it for the week. Patient was informed and verbally consented to the use of an ambient scribe for clinic note documentation during this visit. Coding Level of Care Code Est Pt Level 3 (23996) Diagnoses Achilles tendinitis, left leg M76.62
--- OUTSIDE RECORDS SUMMARY | 2024-03-21 08:03 | XMS_ITS | Data Portability ---
Author Organization [place] - [facility], Allergy Address [address] [address] Care Team Providers Care Body Maker Machine Setter Name Role Phone MARTY ARCHIBALD Primary Care Provider Assessment Encounter Date Assessment Date Assessment LastModified by Organization Details LastModified Time 12/24/2023 12/24/2023 Right ear is demonstrating what appears to be a chronic mucoid middle ear effusion, likely related to eustachian tube dysfunction brought on by radiation exposure. He has a significant mixed hearing loss in the right ear as a result. Nasopharyngoscopy today has ruled out any nasopharyngeal or eustachian tube pathology. Patient was able to successfully Valsalva and insufflate into the middle ear. I have recommended he use Valsalva maneuver or the Eustachi device many times a day over the next couple of months to see if he can get the middle ear to become aerated. If he is unable to successfully clear out the middle ear effusion on a consistent basis, we did discuss the options of use of amplification versus consideration of balloon dilation of the eustachian tube. I specifically discussed my recommendation against placement of tympanostomy tube, because in light of the history of radiation treatment, there is high risk for chronically draining ear following tube placement. [email or web address] Not available 12/24/2023 16:15:09 02/29/2024 02/29/2024 The right ear is looking [...] blockage sensation. He may follow-up as needed. [email or web address] Not available 02/29/2024 12:38:08 Plan of Treatment [...] Abnormal Flag Note LastModifiedBy Organization Detail LastModifiedTime 12/28/19 24 audio gram No observ ation record ed. BARCODE Not Available 2023 14:21:39 03/01/19 25 audio gram No observ ation record ed. BARCODE Not Available 2024 09:36:50 Result Notes None recorded. 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 Procedures Surgical History Date Name Laterality Status Provider Name and Address Organization Details Recorded Time 025 Air & Speech Audio with Tymps (67237, 16316 & 13619) completed BARB MONTESINOS [address], [address], [facility] 02/29/2024 11:59:44 024 Comp Audio with Tymps (56334 & 39698) completed BARB MONTESINOS [address], [address], [facility] 12/24/2023 14:42:33 024 Fiberoptic Nasopharyngoscopy completed ZANA VIGIL MD [address] [place] [address], [address], [facility] 12/24/2023 16:01:54 Imaging Results Imaging Date Name Status LastModified by Organiz ation Details LastModified Time 12/28/2023 audiogram completed BAR[facility] Information no t available 12/28/2023 14:21:39 03/01/2024 audiogram completed BAR[facility] Information no t available 03/01/2024 09:36:50 Procedure Notes None recorded. Medical Equipment None Reported. Allergies Allergen ID Allergen Name Allergen Category Reaction Reaction Severity Criticality Documentation Date Start Date Code Code System Note Provider Name and Address Organization Details Recorded Time 426566 strawberr y allergeni c extract food Not available Not available Not available 12/24/2023 [address] [facility] 15:39:25 No known drug allergies Medications Name [...] Disorder N Anesthesia Complications N Heart Attack (DC) N Other Skin Condition N Diabetes N [...] SNOMED-CT Code Diagnosis ICD10 Code Diagnosis Note [id number] ZANA VIGIL MD [facility] [address] [address] 12/24/2023 14:23:53 12/24/2023 16:16:40 Tinnitus of right ear 8391803359 108 H93.11 Right Ear:Modera te to profound MHL with good speech discrimina tion.Type B tympanogra m.Left Ear:Normal hearing through 2K Hz sloping to a mild SNHL with excellent speech discrimina tion.Type A tympanogra m. Mixed cond uctive and sensorineural hearing loss of right ear [id number] 9105 H90.A31 History of radiation therapy 276220985 Z92.3 Dysfunctio n of eustachian tube 23443257 H68.001 [id number] ZANA VIGIL MD [facility] [address] [address] 02/29/2024 11:25:11 02/29/2024 12:34:41 History of radiation therapy 399011250 Z92.3 Dysfunctio n of eustachian tube 17866975 H68.001 Right Ear:Mild to moderate MHL.Type A tympanogra m- positive pressure noted. Sensorineu ral hearing loss 67497284 H90.3 Health Concerns Section Related Observation LastModified by Organization Detai ls LastModified Time None Recorded Concern Status LastModified by Organization Details LastModified Time None Recorded Advance Directives Directive None Recorded Payers Encounter Date Sequence Insurance Name Policy Number Policy Carlson Covered Member ID Carlson Member ID Guarantor Name 12/24/2023 1 [facility] - DIRECT CONNECTORCARE TYPE I (HMO) [id number] Teddy Peralta [id number] Teddy Peralta 02/29/2024 1 [facility] - DIRECT CONNECTORCARE TYPE I (HMO) [id number] Teddy Ward Fabian [id number] Teddy Peralta Notes Date Note Type Note Provider Name and Address Organization Details Recorded Time 12/24/2023 text/html 33-year-old male who underwent 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 He underwent partial resection of the tumor via suboccipital craniotomy by Dr. Mares in [place] in 2021. The there is a significant amount of residual tumor was irradiated by [facility] radiation oncology is being monitored by radiation oncology service. Patient referred to ENT with complaints of right sided hearing loss. Patient reports that following the tumor resection, he did not notice any changes in his hearing, but midway through his radiation treatment he began noticing hearing loss in the right ear which has been persistent for the past couple of years now. Patient initially found that hearing changed to be manifested as tinnitus, but then the hearing got worse and the tinnitus persists. No pain or discharge. 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 He underwent partial resection of the tumor via suboccipital craniotomy by Dr. Mares in [place] in 2021. The there is a significant amount of residual tumor was irradiated by [facility] radiation oncology is being monitored by [...] in the right ear ZANA VIGIL MD [address] [place] [address], [phone], [facility] - [facility] 02/29/2024 12:38:48
== END 2024-03-21 08:44 | disposition home or self-care (01) ==
PROVIDERS: PCP Internal Medicine; Visit Provider Physician Assistant
DX: M76.62 Achilles tendinitis, left leg (principal)

== ENCOUNTER 2024-07-07 10:13 | Outpatient (AMB) | payer OTHER, SELFPAY ==
[2024-07-07 10:20] VITALS: BP 124/84; PULSE 77; RESP 18; TEMP 36.8; O2SAT 98; BMI 53.2
--- NOTE | 2024-07-07 10:20 | MHC.PC.OV ---
Vital Signs 07/07/24 10:20 Height 5 ft 2 in Weight 291 lb BMI 53.2 BP 124/84 Blood Pressure Location Lt brachial Position Sitting Respiration 18 Pulse 77 Pulse Source Pulse Oximeter Temp 98.3 F Temp Source Oral Pulse Oximetry (%) 98 Oxygen Delivery Method Room Air Intake Visit Reasons: Annual Pe Intake Note: Pt is here today for PE. Allergies No Known Allergies Allergy (Verified 07/07/24 10:22) Medication List - Last Reconciled 07/07/24 by Kia Mota MD compr.stocking,knee,long,x-lrg As directed melatonin 6 mg PO BEDTIME PRN multivitamin (Daily Multi-Vitamin tablet) 1 tab PO DAILY omega 0-czu-csv-fish oil 1,000 (120-180) mg (Fish Oil) 1 cap PO DAILY vitamin B complex 1 cap PO DAILY Tobacco use date assessed: 07/07/24 Dental Screening Dental Screen Date: 07/07/24 Did you have a dental visit in the last 12 months?: Yes Did you have a dental problem in the last 6 months where you did not have access to dental care?: No Was dental information given to patient?: Patient has dentist HPI Annual Pe HPI Details Pt presents for PE. He underwent infected WEAVER WIRE LOOM shunt removal in April. Patient is established with [facility] and [facility] neurosurgeons. Patient underwent cholecystectomy placement for cholelithiasis and was unable to have cholecystectomy due to his WEAVER WIRE LOOM shunt infection. Patient has a follow-up appointment with general surgeon at [facility] to have cholecystectomy scheduled. [facility]LY [facility], [facility] Medical History (Updated 07/07/24 @ 11:02 by Kia Mota MD) Right serous otitis media Hyperlipidemia Meningioma Dysplastic nevi LU (obstructive sleep apnea) Cervical radiculopathy Annual physical exam Asthma Neoplasm of eye Family History Mother Seizures Father No problems noted. Paternal Grandfather Skin cancer Social History Housing: House Alcohol intake: current Alcohol intake frequency: holidays/special occasions only Patient Tobacco Use Status: Never used Tobacco e-Cigarette/Vaping Use: Never Used service: No Current occupational status: employed Cognitive needs: No Hearing needs: No Vision needs: No Questionnaire PHQ-9 Over the last 2 weeks, how often have you been bothered by any of the following problems? 1. Little interest or pleasure in doing things: several days 2. Feeling down, depressed, or hopeless: several days 3. Trouble falling or staying asleep, or sleeping too much: more than half the days 4. Feeling tired or having little energy: more than half the days 5. Poor appetite or overeating: several days 6. Feeling bad about yourself - or that you are a failure or have let yourself or your family down: more than half the days 7. Trouble concentrating on things, such as reading the newspaper or watching television: not at all 8. Moving or speaking so slowly that other people could have noticed. Or the opposite - being so fidgety or restless that you have been moving around a lot more than usual: not at all 9. Thoughts that you would be better off or of hurting yourself in some way: not at all Total score: 9 Depression Screening Interpretation: Positive (Patient is established with a counselor, not interested in medications) Depression Screening Follow-up: Existing condition Depression Screening Done: Yes 20629 - PHQ-9 Billing: Yes Source: Developed by Drs. José Miguel Parekh, Betty Horan, Bill Parks and colleagues, with an educational paul from [employer]. Thrive Questionnaire Date Thrive assessed: 07/07/23 I am a: Patient What is your living situation today?: I have a steady place to live Within the past 12 months, did the food you bought not last and you didn't have the money to get more?: Never true Within the past 12 months, did you worry whether your food would run out before you got money to buy more?: Never true Do you have trouble paying for medicines?: No Do you have trouble getting transportation to medical appointments?: No Do you have trouble paying your heating and electricity bill?: No Do you have trouble taking care of your child, family member or friend?: No Do you have trouble with day-to-day activities such as bathing, preparing meals, shopping, managing finances, etc.?: No Are you currently unemployed and looking for a job?: No Are you interested in more education?: Yes Please select the resources that you would like help with: None Currently or been in a relationship where the following occur: No concerns reported THRIVE Score: 0 AUDIT C Alcohol Use Questionnaire (AUDIT-C) 1. How often do you have a drink containing alcohol?: Monthly or less 2. How many drinks containing alcohol do you have on a typical day when you are drinking?: 1 or 2 3. How often do you have six or more drinks on one occasion?: Never Total Score: 1 ALMITA-7 AMB Questionnaire ALMITA-7 Date ALMITA - 7 assessed: 07/07/24 Feeling nervous, anxious, or on edge: 1 = Several days Not being able to stop or control worryin = Several days Worrying too much about different things: 1 = Several days Trouble relaxin = Several days Being so restless that it is hard to sit still: 0 = Not at all Becoming easily annoyed or irritable: 1 = Several days Feeling afraid as if something awful might happen: 1 = Several days Total ALMITA-7 score (0-4 normal; 5-9 mild; 10-14 moderate; 15-21 severe): 6 Source: Developed by Drs. José Miguel Parekh, Betty Horan, Bill Parks and colleagues, with an educational paul from [employer]. ALMITA-7 Assessment Billing ALMITA-7 Assessment Tool: ALMITA-7 Assessment 49499 Review of Systems Const All systems reviewed & are unremarkable except as noted in HPI and below Eyes Reports no additional complaints ENT Reports no additional complaints Card Reports no additional complaints Resp Reports no additional complaints GI Reports no additional complaints Reports no additional complaints Physical exam (Primary Care) Vital Signs: Last Vital Signs Temp 98.3 F 07/07/24 10:20 Pulse 77 07/07/24 10:20 Resp 18 07/07/24 10:20 BP 124/84 07/07/24 10:20 Pulse Ox 98 07/07/24 10:20 Oxygen Delivery Method Room Air 07/07/24 10:20 BMI result Body Mass Index 53.2 Tobacco/Smoking Status: Tobacco use Status Tobacco use date assessed 07/07/24 07/07/24 10:27 Patient Tobacco Use Status Never used Tobacco 07/07/24 10:22 e-Cigarette/Vaping Use Never Used 07/07/24 10:22 PHQ-9: PHQ-9 Score PHQ-9: Total score 9 05/22/25 10:27 Depression Screening Interpretation: Positive (Patient is established with a counselor, not interested in medications) Depression Screening Follow-up: Existing condition Thrive Assessment: Date of Thrive Assessment Date Thrive assessed 07/07/23 07/07/24 10:22 Currently or been in a relationship where the following occur: No concerns reported Const General: no acute distress HENMT Head: Yes normal to inspection General nose exam: Normal external nose present Face and sinus: Yes normal facial exam Throat: Yes posterior oropharynx normal Eyes General: appearance normal, both eyes and all related structures Neck Neck: Yes no lymphadenopathy and Yes supple Resp Effort & Inspection: normal respiratory effort Auscultation: clear to auscultation bilaterally Cardio Rhythm: regular rhythm Heart sounds: S1 normal heart sound present and S2 normal heart sound present GI Other: Cholecystectomy drain present Inspection: Yes normal to inspection Palpation (GI): Soft to palpation Percussion: Yes normal to percussion Auscultation: normal bowel sounds Coding Level of Care Code Est Pt Prev Care 18-39y(93307) Diagnoses H/O insertion of cholecystostomy tube Z98.890 Morbid obesity due to excess calories E66.01 Meningioma D32.9 Annual physical exam Z00.00 Additional Codes ALMITA-7 Assessment Billing - ALMITA-7 Assessment Tool: ALMITA-7 Assessment 32940 ([id number]) PHQ-9 - 62994 - PHQ-9 Billing: Yes ([id number]) Assessment & Plan Assessment & Plan (1) H/O insertion of cholecystostomy tube: Comment: For cholelithiasis established with [facility] general surgeon, cholecystectomy surgery plan for August 2024 Code(s): Z98.890 - Other specified postprocedural states Category: Surgical Plan: Follow-up with the surgeon at [facility] (2) Morbid obesity due to excess calories: Comment: BMI 53.2 Code(s): E66.01 - Morbid (severe) obesity due to excess calories Category: Medical Plan: Decreasing caloric intake increasing physical activity discussed with the patient. He will be a good candidate for GLP 1 agonist after cholecystectomy surgery. Patient will check with his insurance medication coverage (3) Meningioma: Comment: s/p WEAVER WIRE LOOM shunt placement at [facility] 02/05, R suboccipital craniotomy subtotal resection of left petroclival meningioma by neurosurgeon at [facility] in 07/07, follows up annually for brain MRI, infection and removal of WEAVER WIRE LOOM shunt 04/[address] Perez [facility] neurosurgeon Code(s): D32.9 - Benign neoplasm of meninges, unspecified Category: Medical Plan: Follow-up with neurosurgeon at [facility] (4) Annual physical exam: Code(s): Z00.00 - Encounter for general adult medical examination without abnormal findings Category: Medical Plan: Well-balanced diet regular physical activity discussed with the patient, he will have a fasting blood work today
--- OUTSIDE RECORDS SUMMARY | 2024-07-07 10:41 | XMS_ITS | Data Portability ---
Author Organization [facility] [address] Address [address] [place] [address] Care Team Providers Care Door Tender Name Role Phone [facility] Primary Care Provider Assessment No assessment recorded. Plan of Treatment Reminders Order Date Submit Date Provider Last Modified By Organization Details Last Modified Time Details Appointments None recorded. Lab None recorded. Referral None recorded. Procedures None recorded. Surgeries None recorded. Imaging None recorded. Medication Orders Polytrim 10,000 unit-1 mg/mL eye drops 2022 023 [id number], [address] [place], [place], [phone], 19:48:55 Patient TargetsNo targets recorded. Patient Instructions Encounter Date Encounter Id Patient Instructions Last Modified By Organization Details Last Modified Time 08/28/2022 [id number] Based on your presentation and exam, you [...] next 1 week. Thank you for using [employer] today, please feel free to contact us with any questions or concerns. [email or web address] Not available 08/28/2022 19:49:01 Reason for Referral None Reported. Problems Name Problem SNOMED Code Status Onset Date Resolution Date Notes Provider Name and Address Organization Details Recorded Time Malignant neoplasm of eye 196609367 Completed 202208/28/20221992 [facility]ley [facility] [...] height Body mass index (BMI) Body weight Oxygen saturation Oxygen saturation in Arterial blood by Pulse oximetry Heart rate Respiratory rate Body temperature Systolic blood pressure Diastolic blood pressure Provider Name and Address Organization Details Last Updated DateTime 157.48 cm 43 kg/m2 527442. 21 g 99 % 99 % 77 /min 18 /min 98.1 [degF] 102 mm[Hg] 67 mm[Hg] ULYSSES CASTILLOAU [place] - [facility] 19:26:41 Social History Question Answer Notes LastModified by Organizat ion Details LastModified Time Tobacco Smoking Status Never Smoker ULYSSES NHAN null, [place] - [facility] 08/28/2022 19:21:54 Have You Recently Traveled Abroad? No Information not available 08/28/2022 Sex: Unknown Functional Status Question Answer Note LastModified by Organizat ion Details LastModified Time Do you use any illicit or recreational drugs? No Information not available 08/28/2022 Do you or have you ever used any other forms of tobacco or nicotine? No Information not available 08/28/2022 Are you currently employed? Yes Information not available 08/28/2022 Mental Status None recorded. Family History Relationship [...] SNOMED-CT Code Diagnosis ICD10 Code Diagnosis Note [id number] [facility] [address] [place] [address] 01/19/2021 14:05:43 01/19/2021 14:14:58 [id number] [facility] [address] [address] [place] [address] 02/03/2020 13:37:58 02/03/2020 17:18:55 [id number] [address] [address] [place] [address] 01/19/2021 12:51:52 01/19/2021 14:10:19 [id number] VASILIY GRACE [address] [place] [address] 08/28/2022 19:12:10 08/28/2022 19:59:08 Acute conjunctivitis of right eye 8402329702 49570 H10.31 Health Concerns Section Related Observation LastModified by Organization Detai ls LastModified Time None Recorded Concern Status LastModified by Organization Details LastModified Time None Recorded Advance Directives Directive None Recorded Payers Insurance Date Sequence Insurance Name Policy Number Policy Carlson Covered Member ID Carlson Member ID Guarantor Name 09/03/2022 1 [facility] [email or web address] [facility] ([facility] [id number] Teddy Pinedaicki [id number] Teddy Fabian Notes Date Note Type Note Provider Name and Address Organization Details Recorded Time 08/28/2022 text/html PhysicalReported bypatient.Notes:31 y.o male pt presents with right eye erythema with mild discharge x 2 days. Pt denies pain, fb sensation, light sensitivity, or h/o wearing contacts. Used Zyrtec with some benefit. VASILIY GRACE [address] [place], [address], [place] - [facility] 09/03/2022 13:54:07
--- OUTSIDE RECORDS SUMMARY | 2024-07-07 10:42 | XMS_ITS | Data Portability ---
Author Organization [place] - [facility], Allergy Address [address] [address] Care Team Providers Care Barrel Inspector Tight Name Role Phone MARTY ARCHIBALD Primary Care Provider [phone] Assessment Encounter Date Assessment Date Assessment LastModified [...] for chronically draining ear following tube placement. [email or web address] Not available 12/24/2023 16:15:09 02/29/2024 02/29/2024 The [...] blockage sensation. He may follow-up as needed. 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 0347460858717 5 Active 2023 GIGI HICKMAN [address] [address], [facility] [place], [address], [facility] - [facility] 4 14:52:35 Dysfunction of eustachian tube 27822063 Active 2023 ZANA VIGIL MD [address] [address], [facility] [place], [address], [facility] - [facility] 4 16:12:30 Sensorineur al hearing loss 10939348 Active 2024 ZANA VIGIL MD [address], [address], [place] [facility] 12:35:52 Problem Notes None recorded. Procedures Surgical History Date Name Laterality Status Provider Name and Address Organization Details Recorded Time 025 Air & Speech Audio with Tymps - 79095, 64986 & 76533 completed BARB MONTESINOS, [address], [address], [facility] 02/29/2024 11:59:44 024 Comp Audio with Tymps - 53354 & 29827 completed BARB MONTESINOS [address], [address], [facility] 12/24/2023 14:42:33 024 Fiberoptic Nasopharyngoscopy completed ZANA VIGIL MD [address], [address], [facility] 12/24/2023 16:01:54 Imaging Results Imaging Date Name [...] Name and Address Organization Details Recorded Time 758342 strawberr y allergeni c extract food Not available Not available Not available 12/24/2023 10985 4 RxNorm Olga brantley [place] [facility] 15:39:25 No known drug allergies Medications Name [...] History Nothing Reported. Medical History Condition Response Tonsil Infections N Emphysema N Glaucoma N Depression Y COPD N Nasal or Sinus Problems N Anesthesia Complications N Arthritis N Hearing Loss Y Cancer Y Stroke N High Cholesterol Y Liver Disease N Headaches Y Fibromyalgia N Speech Delay N Kidney Disease N Allergies/Hayfever Y Heart Problems N Anxiety Y Migraines Y Thyroid Problems N Developmental Delay N Anemia N Immune System Disorder N Heart Attack (PR) N Other Skin Condition N Diabetes N Rhinitis N Bleeding Disorder N Food Allergy Y Hyperlipidemia Y Dementia N Nasal polyps N Asthma N Sleep Disorder Y GERD/Reflux N Hypertension N Past Encounters Encounter ID Performer Location Encounter Start Date Encounter Closed Date Diagnosis/Indication Diagnosis SNOMED-CT Code Diagnosis ICD10 Code Diagnosis Note [id number] ZANA VIGIL MD [facility] [address] [address] 12/24/2023 14:23:53 12/24/2023 16:16:40 Tinnitus of right ear 9457304254 108 H93.11 Right Ear:Modera te to profound MHL with good speech discrimina tion.Type B tympanogra m.Left Ear:Normal hearing through 2K Hz sloping to a mild SNHL with excellent speech discrimina tion.Type A tympanogra m. Mixed cond uctive and sensorineural hearing loss of right ear 2114495463 9105 H90.A31 History of radiation therapy 012293310 Z92.3 Dysfunctio n of eustachian tube 49840555 H68.001 [id number] ZANA VIGIL MD [facility] [address] [address] 02/29/2024 11:25:11 02/29/2024 12:34:41 History of radiation therapy 961503499 Z92.3 Dysfunctio n of eustachian tube 70264836 H68.001 Right Ear:Mild to moderate MHL.Type A tympanogra m- positive pressure noted. Sensorineu ral hearing loss 41327820 H90.3 Health Concerns Section Related Observation LastModified by Organization Detai ls LastModified Time None Recorded Concern Status LastModified by Organization Details LastModified Time None Recorded Advance Directives Directive None Recorded Payers Insurance Date Sequence Insurance Name Policy Number Policy Carlson Covered Member ID Carlson Member ID Guarantor Name 02/25/2024 1 [facility] [employer] - DIRECT [employer] TYPE I (HMO) [id number] Teddy Peralta [id number] Teddy Peralta Notes Date Note Type Note Provider Name and Address Organization Details Recorded Time 12/24/2023 text/html 33-year-old male who underwent 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 He underwent partial resection of the tumor via suboccipital craniotomy by Dr. Mares in [place] in 2021. 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 He underwent partial resection of the tumor via suboccipital craniotomy by Dr. Mares in [place] in 2021. The there is a significant amount of residual tumor was irradiated by [facility] radiation oncology is being monitored by [...] in the right ear ZANA VIGIL MD [address] [place] [address], [place], [address], [facility] - [facility] 02/29/2024 12:38:48
== END 2024-07-07 10:58 | disposition home or self-care (01) ==
LOC: HO.HMCC 10:14
PROVIDERS: PCP Internal Medicine; Visit Provider Internal Medicine
DX: Z00.00 Encounter for general adult medical examination without abnormal findings (principal); E66.01 Morbid (severe) obesity due to excess calories; D32.9 Benign neoplasm of meninges, unspecified; Z68.43 Body mass index [BMI] 50.0-59.9, adult; Z98.890 Other specified postprocedural states

== ENCOUNTER 2024-07-07 10:13 | Outpatient (REF) | payer OTHER, SELFPAY ==
[2024-07-07 13:02] LABS: MANUAL DIFF FLAG NO
[2024-07-07 13:07] LABS: Basophils Absolute Auto 0.1 X10*3/uL (0.0-0.2); Eosinophils Absolute Auto 0.4 X10*3/uL (0.0-0.4); Hematocrit 39.3 % (42.0-52.0); Hemoglobin 13.2 g/dl (14.0-18.0); Imm Gran Abs Auto 0.05 X10*3/uL (0.00-0.03); Imm Gran Pct Auto 0.7 % (0.0-0.4); Lymphocytes Absolute Auto 2.4 X10*3/uL (1.2-4.9); Lymphocytes Percent Auto 35.4 % (20-40); Mean Corpuscular HGB Conc 33.6 g/dl (31.0-36.0); Mean Corpuscular Hemoglobin 29.5 pg (27.0-33.0); Mean Corpuscular Volume 87.7 fL (80.0-98.0); Mean Platelet Volume 10.1 fL (9.4-12.4); Monocytes Absolute Auto 0.4 X10*3/uL (0.1-1.2); Neutrophils Absolute Auto 3.4 x10*3/uL (2.0-8.3); Neutrophils Percent Auto 50.9 % (45-73); Platelet Count 269 X10*3/uL (160-400); Red Blood Count 4.48 X10*6/uL (4.60-5.80); Red Cell Distribution Width 13.2 % (11.0-16.0); White Blood Count 6.8 X10*3/uL (4.8-10.8)
[2024-07-07 13:16] LABS: Estimated Average Glucose 103 mg/dL; Hemoglobin A1c % 5.2 % (<6.0); Total Hemoglobin (HGBA1C) 3505.9726 umol/L
[2024-07-07 13:32] LABS: Alanine Aminotransferase 58 U/L (0-40); Albumin Level 4.4 g/dL (3.5-5.0); Alkaline Phosphatase 74 U/L (39-117); Anion Gap 14 (12-20); Aspartate Amino Transferase 63 U/L (5-37); Bilirubin Total 1.3 mg/dL (0.0-1.0); Blood Urea Nitrogen 12 mg/dL (9-16); Calcium 9.9 mg/dL (8.4-10.2); Carbon Dioxide 23 mmol/L (22-29); Chloride 107 mmol/L (96-108); Cholesterol 252 mg/dL (<200); Estimated Glomerular Filt Rate > 60; Glucose Fasting 90 mg/dL (60-99); HDL Cholesterol 36 mg/dL (>40); Iron 83 mcg/dL (45-160); LDL Cholesterol Calculated 161 mg/dL (<100); Percent Iron Saturation 26 % (15-50); Potassium 4.1 mmol/L (3.3-5.1); Sodium 140 mmol/L (135-145); Total Iron Binding Capacity 325 mcg/dL (228-428); Total Protein 8.1 g/dL (6.5-8.0); Triglycerides 275 mg/dL (<150); Unsaturated Iron Binding 242 ug/dL
[2024-07-07 14:04] LABS: Folate 15.3 ng/mL (> or = 4.0); Vitamin B12 541 pg/mL (200-900)
== END 2024-07-07 10:14 | disposition home or self-care (01) ==
LOC: HO.HMGCLDS 10:13
PROVIDERS: PCP Internal Medicine; Visit Provider Internal Medicine
DX: Z00.00 Encounter for general adult medical examination without abnormal findings (principal); E66.01 Morbid (severe) obesity due to excess calories; Z68.43 Body mass index [BMI] 50.0-59.9, adult; D32.9 Benign neoplasm of meninges, unspecified; R73.9 Hyperglycemia, unspecified; E78.5 Hyperlipidemia, unspecified; Z98.890 Other specified postprocedural states
CPT/HCPCS: 36415; 80053; 80061; 82607; 82746; 83036; 83540; 85025; 96127; 99395

== ENCOUNTER 2024-11-02 14:13 | Outpatient (AMB) | payer OTHER, SELFPAY ==
[2024-11-02 14:16] VITALS: BP 118/76; PULSE 79; RESP 19; TEMP 37.3; O2SAT 94; BMI 56.0
--- NOTE | 2024-11-02 14:16 | MHC.PC.OV ---
Vital Signs 11/02/24 14:16 Height 5 ft 2 in Weight 306 lb BMI 56.0 BP 118/76 Blood Pressure Location Lt brachial Position Sitting Respiration 19 Pulse 79 Pulse Source Pulse Oximeter Temp 99.2 F Temp Source Oral Pulse Oximetry (%) 94 Oxygen Delivery Method Room Air Intake Visit Reasons: Follow up to go back to work Intake Note: Pt is here today for a follow up visit. Allergies No Known Allergies Allergy (Verified 07/07/24 10:22) Medication List - Last Reconciled 11/02/24 by Kia Mota MD compr.stocking,knee,long,x-lrg As directed melatonin 6 mg PO BEDTIME PRN multivitamin (Daily Multi-Vitamin tablet) 1 tab PO DAILY omega 0-bvo-mos-fish oil 1,000 (120-180) mg (Fish Oil) 1 cap PO DAILY vitamin B complex 1 cap PO DAILY Tobacco use date assessed: 11/02/24 Dental Screening Dental Screen Date: 07/07/24 HPI Follow up to go back to work HPI Details Patient presents for the follow-up. Cholecystectomy surgery was attempted but because of extensive scar tissue it was postponed. Patient had colostomy tube removed. He has been following low-fat diet and denies abdominal pain after eating nausea or vomiting. Patient would like to return back to work next week. [facility] Medical History Right serous otitis media Hyperlipidemia Meningioma Dysplastic nevi LU (obstructive sleep apnea) Cervical radiculopathy Annual physical exam Asthma Neoplasm of eye Family History Mother Seizures Father No problems noted. Paternal Grandfather Skin cancer Social History Housing: House Alcohol intake: current Alcohol intake frequency: holidays/special occasions only Patient Tobacco Use Status: Never used Tobacco e-Cigarette/Vaping Use: Never Used service: No Current occupational status: employed Cognitive needs: No Hearing needs: No Vision needs: No Questionnaire PHQ-9 Over the last 2 weeks, how often have you been bothered by any of the following problems? 1. Little interest or pleasure in doing things: several days 2. Feeling down, depressed, or hopeless: several days 3. Trouble falling or staying asleep, or sleeping too much: more than half the days 4. Feeling tired or having little energy: more than half the days 5. Poor appetite or overeating: several days 6. Feeling bad about yourself - or that you are a failure or have let yourself or your family down: several days 7. Trouble concentrating on things, such as reading the newspaper or watching television: not at all 8. Moving or speaking so slowly that other people could have noticed. Or the opposite - being so fidgety or restless that you have been moving around a lot more than usual: not at all 9. Thoughts that you would be better off or of hurting yourself in some way: not at all Total score: 8 Depression Screening Interpretation: Positive (Patient is established with a counselor, not interested in medications) Depression Screening Follow-up: Existing condition Depression Screening Done: Yes Source: Developed by Drs. José Miguel Parekh, Betty Horan, Bill Parks and colleagues, with an educational paul from [employer]. Thrive Questionnaire Date Thrive assessed: 07/07/24 I am a: Patient What is your living situation today?: I have a steady place to live Within the past 12 months, did the food you bought not last and you didn't have the money to get more?: Never true Within the past 12 months, did you worry whether your food would run out before you got money to buy more?: Never true Do you have trouble paying for medicines?: No Do you have trouble getting transportation to medical appointments?: No Do you have trouble paying your heating and electricity bill?: No Do you have trouble taking care of your child, family member or friend?: No Do you have trouble with day-to-day activities such as bathing, preparing meals, shopping, managing finances, etc.?: No Are you currently unemployed and looking for a job?: No Are you interested in more education?: Yes Please select the resources that you would like help with: None Currently or been in a relationship where the following occur: No concerns reported THRIVE Score: 0 ALMITA-7 AMB Questionnaire ALMITA-7 Date ALMITA - 7 assessed: 07/07/24 Feeling nervous, anxious, or on edge: 1 = Several days Not being able to stop or control worryin = Several days Worrying too much about different things: 1 = Several days Trouble relaxin = Several days Being so restless that it is hard to sit still: 0 = Not at all Becoming easily annoyed or irritable: 1 = Several days Feeling afraid as if something awful might happen: 1 = Several days Total ALMITA-7 score (0-4 normal; 5-9 mild; 10-14 moderate; 15-21 severe): 6 Source: Developed by Drs. José Miguel Parekh, Betty Horan, Bill Parks and colleagues, with an educational paul from [employer]. Review of Systems Const All systems reviewed & are unremarkable except as noted in HPI and below Eyes Reports no additional complaints Card Reports no additional complaints Resp Reports no additional complaints GI Reports no additional complaints Reports no additional complaints Physical exam (Primary Care) Vital Signs: Last Vital Signs Temp 99.2 F 11/02/24 14:16 Pulse 79 11/02/24 14:16 Resp 19 11/02/24 14:16 BP 118/76 11/02/24 14:16 Pulse Ox 94 11/02/24 14:16 Oxygen Delivery Method Room Air 11/02/24 14:16 BMI result Body Mass Index 56.0 Tobacco/Smoking Status: Tobacco use Status Tobacco use date assessed 11/02/24 11/02/24 14:22 Patient Tobacco Use Status Never used Tobacco 11/02/24 14:22 e-Cigarette/Vaping Use Never Used 11/02/24 14:22 PHQ-9: PHQ-9 Score PHQ-9: Total score 8 11/02/24 14:22 Depression Screening Interpretation: Positive (Patient is established with a counselor, not interested in medications) Depression Screening Follow-up: Existing condition Thrive Assessment: Date of Thrive Assessment Date Thrive assessed 07/07/24 11/02/24 14:22 Currently or been in a relationship where the following occur: No concerns reported Const General: no acute distress HENMT Face and sinus: Yes normal facial exam Neck Neck: Yes supple Resp Effort & Inspection: normal respiratory effort Auscultation: clear to auscultation bilaterally Cardio Rhythm: regular rhythm Heart sounds: S1 normal heart sound present and S2 normal heart sound present GI Inspection: Yes normal to inspection Palpation (GI): Soft to palpation Percussion: Yes normal to percussion Auscultation: normal bowel sounds Coding Level of Care Code Est Pt Prev Care 18-39y(72879) Diagnoses Morbid obesity due to excess calories E66.01 Cholelithiasis K80.20 Hyperlipidemia E78.5 Assessment & Plan Assessment & Plan (1) Morbid obesity due to excess calories: Comment: BMI 53.2 Code(s): E66.01 - Morbid (severe) obesity due to excess calories Category: Medical Plan: Decreasing caloric intake increasing physical activity discussed with the patient (2) Cholelithiasis: Code(s): K80.20 - Calculus of gallbladder without cholecystitis without obstruction Category: Medical Plan: Follow-up with [facility] surgery (3) Hyperlipidemia: Code(s): E78.5 - Hyperlipidemia, unspecified Category: Medical Plan: Low-cholesterol diet increase physical activity weight loss discussed. patient will return for physical in June with a fasting labs before Orders: Orders Lipid Panel 8 Months E66.01 - Morbid (severe) obesity due to excess calories, E78.5 - Hyperlipidemia, unspecified, R73.9 - Hyperglycemia, unspecified UA w Microscopic 8 Months E66.01 - Morbid (severe) obesity due to excess calories, E78.5 - Hyperlipidemia, unspecified, R73.9 - Hyperglycemia, unspecified TSH reflex Free T4 8 Months E66.01 - Morbid (severe) obesity due to excess calories, E78.5 - Hyperlipidemia, unspecified, R73.9 - Hyperglycemia, unspecified Comprehensive Williams. Panel Fast 8 Months E66.01 - Morbid (severe) obesity due to excess calories, E78.5 - Hyperlipidemia, unspecified, R73.9 - Hyperglycemia, unspecified Complete Blood Count Auto Diff 8 Months E66.01 - Morbid (severe) obesity due to excess calories, E78.5 - Hyperlipidemia, unspecified, R73.9 - Hyperglycemia, unspecified
--- OUTSIDE RECORDS SUMMARY | 2024-11-02 17:57 | XMS_ITS | Clinical Summary ---
Author Organization [facility] Address [address] [facility] [address] [place] [address] Care Team Providers Care Ware Tester Name Role Phone Kia Mota MD Primary Care Provider Allergies Active Allergy Reactions Criticality Noted Date Comments [place] Hives 05/24/2021 Medications oxyCODONE (Roxicodone) 5 mg immediate release tabletIndication s:Chiari malformation type I Take 1 tablet (5 mg) by mouth every 4 (four) hours if needed (severe pain). 30 tablet 06/07/2021 2:54 PM EDT Active ascorbic acid (Vitamin C) 500 mg tablet Take 500 mg by mouth in the morning. Active acetaminophen (Tylenol) 500 mg tablet Take 500 mg by mouth every 6 (six) hours if needed for pain score 1-3. Active multivitamin tablet Take 1 tablet by mouth in the morning. Active betamethasone valerate (Valisone) 0.1 % ointment Apply 1 application topically in the morning and at bedtime. APPLY TO FEET TWICE DAILY FOR 2 WEEKS THEN BREAK FOR 1 WEEK THEN REPEAT NEEDED (currently off cycle) Active triamcinolone (Kenalog) 0.1 % ointment Apply 1 application topically in the morning and at bedtime. 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 Syringomyelia 05/11/2021 Meningioma 05/11/2021 Chiari malformation type I 05/11/2021 Decreased activity tolerance Family History Relation Name Status Comments Father Alive Mother Alive Social History Tobacco Use Types Packs/Day Years Used Date Smoking Tobacco: Never Smokeless Tobacco: Never Alcohol Use Standard Drinks/Week Comments Yes 1 (1 standard drink = 0.6 oz pur e alcohol) Rarely PHQ-2 Answer Date Recorded Patient Health Questionnaire-2 Score 0 08/26/2021 Sex and Gender Information Value Date Recorded Sex Assigned at Male 06/01/2021 9:14 AM EDT Legal Sex Male 8:22 AM EST Gender Identity Male 06/01/2021 9:14 AM EDT Sexual Orientation Not on file Last Filed Vital Signs Vital Sign Reading Time Taken Comments Blood Pressure 130/83 08/26/2021 10:38 AM EDT Pulse 87 08/26/2021 10:38 AM EDT Temperature 37 C (98.6 F) 07/12/2021 12:22 PM EDT Respiratory Rate 20 07/12/2021 12:22 PM EDT Oxygen Saturation 98% 07/12/2021 12:22 PM EDT Inhaled Oxygen Concentration - - Weight 137.9 kg (304 lb) 08/26/2021 10:38 AM EDT Height 158.5 cm (5' 2.4 ) 08/26/2021 10:38 AM ED T Body Mass Index 54.89 08/26/2021 10:38 AM EDT Plan of Treatment Health Maintenance Due Date Last Done Comments HIV Screening 1989 Lipid Panel 1989 MMR Vaccines (1 of 1 - Standard series) 1990 Varicella Vaccines (1 of 2 - 13+ 2-dose series) 2002 Hepatitis C Screening 09/28/2007 DTaP/Tdap/Td Vaccines (1 - Tdap) 2008 Hepatitis B Vaccines (1 of 3 - 19+ 3-dose series) 2008 HPV Vaccines (1 - 3-dose SCD M series) 2016 Depression Screening 02/17/2024 COVID-19 Vaccine (4 - 2024-2 6 season) 2024 03/08/2021, 06/22/2020, 06/01/2020 Influenza Vaccine (#1) 2024 , 01/19/2021 HIB Vaccines Aged Out No longer eligi ble based on patient's age to complete this topic Hepatitis A Vaccines Aged Out No long er eligible based on patient's age to complete this topic IPV Vaccines Aged Out No longer eligi ble based on patient's age to complete this topic Meningococcal B Vaccine Aged Out No l onger eligible based on patient's age to complete this topic Meningococcal Vaccine Aged Out No blaze namita eligible based on patient's age to complete this topic Pneumococcal Vaccine: Pediatrics (0 to 5 Years) and At-Risk Patients (6 to 49 Years) Aged Out No longer eligible b ased on patient's age to complete this topic Rotavirus Vaccines Aged Out No longer eligible based on patient's age to complete this topic Medical Devices Implanted Type Area Roofing Applicator Device Identifier Shelf Expiration Date Model / Serial / Lot Substitute Bone Hydroset 10cc - [id number] Implanted:Qty : 1 on 07/10/2021 at [facility] Bone Right: Cranial [employer] 12/22/2022 [id number] / / [id number] Dental Implant Dental Implant Mouth Graft Alloderm 4x7 Xthin .3-.9 - [id number] - [id number] Implanted:Qty : 1 on 06/04/2021 by Moisés Mares MD at [facility] Graft N/A: Suboccipital [employer] 03/18/2022 [id number] / [id number] / Plate Lo Pro 2h 16mm Bar - Sn/A - [id number] Implanted:Qty : 1 on 07/10/2021 by Moisés Mares MD at [facility] Plate Right: Cranial [employer] 07/10/2021 [id number] / N/A / Plate Lo Pro 3d Box 6e7icve Lg - Sn/A - [id number] Implanted:Qty : 1 on 07/10/2021 by Moisés Mares MD at [facility] Plate Right: Cranial [employer] [id number] / N/A / Screw Uniii Axs 1.5x5 Sd - Sn/A - [id number] Implanted:Qty : 6 on 07/10/2021 by Moisés Mares MD at [facility] Screw Right: Cranial [employer] 07/10/2021 [id number] / N/A / Shunt Shunt Left: Brain [facility] NONSUBSIDIZED Advance Directives Documents on File Type Date Recorded Patient Administrative Analyst Expl anation Advance Directives and Livin g Will 06/07/2021 Health Care Proxy Health Care Proxy 06/04/2021 HEALTH CAR E PROXY * Full Code (Latest Code Status on File) Date Activated Date Inactivated Comments 07/10/2021 3:46 PM 07/12/2021 4:47 PM * Full Code Date Activated Date Inactivated Comments 07/10/2021 6:31 AM 07/10/2021 3:46 PM * Full Code Date Activated Date Inactivated Comments 06/04/2021 6:27 AM 06/07/2021 5:55 PM Care Teams Ware Tester Relationship Specialty Start Date End Date Kia Mota MD [address] [place] [address] [facility] - General 03/22/21
== END 2024-11-02 15:00 | disposition home or self-care (01) ==
LOC: HO.HMCC 14:13
PROVIDERS: PCP Internal Medicine; Visit Provider Internal Medicine
DX: Z00.00 Encounter for general adult medical examination without abnormal findings (principal); E66.01 Morbid (severe) obesity due to excess calories; Z68.43 Body mass index [BMI] 50.0-59.9, adult; K80.20 Calculus of gallbladder without cholecystitis without obstruction; E78.5 Hyperlipidemia, unspecified

== ENCOUNTER → 2024-11-02 14:13 | Outpatient (BNVA) | payer OTHER, SELFPAY | PROVIDERS: PCP Internal Medicine; Visit Provider Internal Medicine | DX: E66.01 Morbid (severe) obesity due to excess calories (principal); K80.20 Calculus of gallbladder without cholecystitis without obstruction; E78.5 Hyperlipidemia, unspecified; R73.9 Hyperglycemia, unspecified; Z68.43 Body mass index [BMI] 50.0-59.9, adult | CPT/HCPCS: 99395 ==

== ENCOUNTER 2025-01-24 13:00 | Outpatient (AMB) | payer OTHER, SELFPAY ==
--- NOTE | 2025-01-24 13:08 | A.OFFPC_ITS ---
Vital Signs 01/24/25 13:15 Height 5 ft 2 in Weight 306 lb BMI 56.0 BP 118/80 Blood Pressure Location Lt brachial Position Sitting Respiration 18 Pulse 77 Pulse Source Pulse Oximeter Temp 98.3 F Temp Source Oral Pulse Oximetry (%) 99 Oxygen Delivery Method Room Air Intake Visit Reasons: returning to work follow up Intake Note: Pt is here today for a follow up visit. Allergies No Known Allergies Allergy (Verified 01/24/25 13:21) Tobacco use date assessed: 01/24/25 Dental Screening Dental Screen Date: 07/07/24 HPI returning to work follow up HPI Details Patient presents for the follow-up of open cholecystectomy at [facility] on December 15. Patient reports still feeling slight discomfort at the scar area with the change in position but denies nausea vomiting change in bowel habits, fever or chills. Patient will have recurrent meningioma treatment by gamma knife at [facility] in 2 weeks. [facility] Medical History Right serous otitis media Hyperlipidemia Meningioma Dysplastic nevi LU (obstructive sleep apnea) Cervical radiculopathy Annual physical exam Asthma Neoplasm of eye Surgical History (Updated 01/24/25 @ 13:36 by Kia Mota MD) S/P cholecystectomy Family History Mother Seizures Father No problems noted. Paternal Grandfather Skin cancer Social History Housing: House Alcohol intake: current Alcohol intake frequency: holidays/special occasions only Patient Tobacco Use Status: Never used Tobacco e-Cigarette/Vaping Use: Never Used service: No Current occupational status: employed Cognitive needs: No Hearing needs: No Vision needs: No Questionnaire Thrive Questionnaire Date Thrive assessed: 07/07/24 I am a: Patient What is your living situation today?: I have a steady place to live Within the past 12 months, did the food you bought not last and you didn't have the money to get more?: Never true Within the past 12 months, did you worry whether your food would run out before you got money to buy more?: Never true Do you have trouble paying for medicines?: No Do you have trouble getting transportation to medical appointments?: No Do you have trouble paying your heating and electricity bill?: No Do you have trouble taking care of your child, family member or friend?: No Do you have trouble with day-to-day activities such as bathing, preparing meals, shopping, managing finances, etc.?: No Are you currently unemployed and looking for a job?: No Are you interested in more education?: Yes Please select the resources that you would like help with: None Currently or been in a relationship where the following occur: No concerns reported THRIVE Score: 0 ALMITA-7 AMB Questionnaire ALMITA-7 Date ALMITA - 7 assessed: 07/07/24 Source: Developed by Drs. José Miguel Parekh, Betty Horan, Bill Parks and colleagues, with an educational paul from [employer]. Review of Systems Const All systems reviewed & are unremarkable except as noted in HPI and below Eyes Reports no additional complaints ENT Reports no additional complaints Card Reports no additional complaints Resp Reports no additional complaints GI Reports no additional complaints Reports no additional complaints Physical exam (Primary Care) Vital Signs: Last Vital Signs Temp 98.3 F 01/24/25 13:15 Pulse 77 01/24/25 13:15 Resp 18 01/24/25 13:15 BP 118/80 01/24/25 13:15 Pulse Ox 99 01/24/25 13:15 Oxygen Delivery Method Room Air 01/24/25 13:15 BMI result Body Mass Index 56.0 Tobacco/Smoking Status: Tobacco use Status Tobacco use date assessed 01/24/25 01/24/25 13:21 Patient Tobacco Use Status Never used Tobacco 01/24/25 13:08 e-Cigarette/Vaping Use Never Used 01/24/25 13:08 Thrive Assessment: Date of Thrive Assessment Date Thrive assessed 07/07/24 01/24/25 13:08 Currently or been in a relationship where the following occur: No concerns reported Const General: no acute distress HENMT Head: Yes normal to inspection Throat: Yes posterior oropharynx normal Resp Effort & Inspection: normal respiratory effort Auscultation: clear to auscultation bilaterally Cardio Rhythm: regular rhythm Heart sounds: S1 normal heart sound present and S2 normal heart sound present GI Other: cholecystectomy scar healed well, without signs of infection Inspection: Yes normal to inspection Palpation (GI): Soft to palpation Percussion: Yes normal to percussion Auscultation: normal bowel sounds Coding Level of Care Code Est Pt Level 4 (52345) Diagnoses S/P cholecystectomy Z90.49 Meningioma D32.9 Assessment & Plan Assessment & Plan (1) S/P cholecystectomy: Comment: seth [facility] 12/15/2024 Code(s): Z90.49 - Acquired absence of other specified parts of digestive tract Category: Surgical Plan: Patient cleared to return back to work next Thursday with the restriction of no lifting more than 30 lb for next month (2) Meningioma: Comment: s/p [employer] shunt placement at [facility] 02/05, R suboccipital craniotomy subtotal resection of left petroclival meningioma by neurosurgeon at [facility] in 07/07, follows up annually for brain MRI, infection and removal of [employer]ER shunt 04/[address] Perez [facility] neurosurgeon Code(s): D32.9 - Benign neoplasm of meninges, unspecified Category: Medical Plan: Follow-up with [facility] for recurrent meningioma
[2025-01-24 13:15] VITALS: BP 118/80; PULSE 77; RESP 18; TEMP 36.8; O2SAT 99; BMI 56.0
== END 2025-01-24 13:39 | disposition home or self-care (01) ==
LOC: HO.HMCC 13:01
PROVIDERS: PCP Internal Medicine; Visit Provider Internal Medicine
DX: Z90.49 Acquired absence of other specified parts of digestive tract (principal); D32.9 Benign neoplasm of meninges, unspecified

== ENCOUNTER → 2025-01-24 13:00 | Outpatient (BNVA) | payer OTHER, SELFPAY | PROVIDERS: PCP Internal Medicine; Visit Provider Internal Medicine | DX: D32.9 Benign neoplasm of meninges, unspecified (principal); Z90.49 Acquired absence of other specified parts of digestive tract | CPT/HCPCS: 99212 ==